=== PATIENT | female | born 1990 | race Caucasian/White ===

== ENCOUNTER 2016-06-26 19:11 | Observation (INO) | payer OTHER ==
[~2016-06-26] VITALS: Ht 175.3 cm; Wt 162.2 kg
[~2016-06-26 19:11] MED LIST: ANUS2.5C2 PR; COLA100C PO; MOM30SS PO; MOTR200T44 PO; TYLE167L PO
[2016-06-26] MEDS ORDERED: ONDANSETRON 4MG/2ML VIAL (J2405) As Ordered ONE (21:44)
[2016-06-26] MEDS ORDERED: KETOROLAC 30 MG/ML VIAL (J1885) As Ordered ONE (21:45)
[2016-06-26 22:22] LABS: BASO % 0.3 % (0.0-1.0); EOS # 0.2 K/mm3 (0.0-0.50); EOS % 1.4 % (0.0-3.0); LARGE UNSTAINED CELL # 0.2 K/mm3 (0.0-0.4); LARGE UNSTAINED CELL % 1.4 % (0.0-4.0); LYMPH # 1.5 K/mm3 (1.5-6.5); LYMPH % 12.9 % (24.0-44.0); MEAN CORPUSCULAR HEMOGLOBIN 28.8 pg (27.0-33.0); MEAN CORPUSCULAR HGB CONC 32.6 g/dl (32.0-36.5); MEAN CORPUSCULAR VOLUME 88.3 fl (80.0-96.0); MONO # 0.6 K/mm3 (0.0-0.8); MONO % 5.2 % (0.0-5.0); NEUTROPHILS # 9.1 K/mm3 (1.8-7.7); NEUTROPHILS % 78.8 % (36.0-66.0); PLATELET COUNT, AUTOMATED 277 k/mm3 (150-450); RED CELL DISTRIBUTION WIDTH 12.6 % (11.5-14.5); WHITE BLOOD COUNT 11.6 K/mm3 (4.0-10.0)
[2016-06-26 22:40] LABS: ALBUMIN 3.4 GM/DL (3.2-5.2); ALBUMIN/GLOBULIN RATIO 0.85 (1.00-1.93); ALKALINE PHOSPHATASE 96 U/L (45-117); ALT/SGPT 20 U/L (12-78); AMYLASE 25 U/L (25-115); ANION GAP 9 MEQ/L (8-16); AST/SGOT 11 U/L (15-37); BILIRUBIN,DIRECT 0.2 MG/DL (0.0-0.2); BILIRUBIN,TOTAL 0.8 MG/DL (0.2-1.0); BLOOD UREA NITROGEN 10 MG/DL (7-18); CALCIUM LEVEL 8.6 MG/DL (8.5-10.1); CARBON DIOXIDE LEVEL 27 MEQ/L (21-32); CHLORIDE LEVEL 104 MEQ/L (98-107); CREATININE FOR GFR 0.65 MG/DL (0.55-1.02); GLOMERULAR FILTRATION RATE > 60.0 (>60); GLUCOSE, FASTING 80 MG/DL (70-105); POTASSIUM SERUM 4.4 MEQ/L (3.5-5.1); SODIUM LEVEL 140 MEQ/L (136-145); TOTAL PROTEIN 7.4 GM/DL (6.4-8.2)
--- NOTE | 2016-06-26 22:40 | REPUSA ---
CLINICAL HISTORY: Renal colic. TECHNIQUE: Multiple axial, sagittal and coronal CT images were obtained through the abdomen and pelvi s without administration of oral or IV contrast material. COMMENTS: The liver is of uniform attenuation without mass or defect. There is no intra or extrahepatic biliary ductal dilatation. The spleen is enlarged, 16 CM. Gallbladder is packed with calcified stones. The pancreas is of normal contour and attenuation characteristics. There is no evidence of adrenal mass. The kidneys are normal in size, shape and configuration. No renal or ureteral calculi are identified. There is no hydroureter or hydronephrosis. There is no evidence for appendicitis. There is no bowel wall thickening. No evidence for small or la rge bowel obstruction. There is no evidence of abdominal ascites or lymphadenopathy. There is no evidence of intrinsic or extrinsic bladder mass. There is no pelvic ascites or lymphadeno angle. 4 x 6 cm right ovarian cyst is seen. Uterus and left ovary are unremarkable. Images of the lung bases show no evidence of pleural or parenchymal mass. There are no pleural effusi ons. The bony structures are free of lytic or blastic lesions. IMPRESSION: Gallbladder is packed with calcified stones. Splenomegaly. No renal or ureteral calculi are identified. 4 x 6 cm right ovarian cyst. Consider correlation with pelvic ultrasound. Thank you for your kind referral of this patient.
--- NOTE | 2016-06-26 23:00 | REPUSA ---
HISTORY: Biliary colic TECHNIQUE: Right upper quadrant ultrasound. COMPARISON: Same-day CT abdomen. ULTRASOUND RUQ: Liver: No intrahepatic ductal dilation. Diffusely increased hepatic echotexture consistent with fatty infiltration. Gallbladder: Filled with stones, with mild wall thickening at 3 mm, and positive sonographic Marcos's sign. Common bile duct: Nondistended at 4.8 mm. Pancreas: Poorly visualized due to overlying bowel gas. No pancreatic duct dilation. Right kidney: 11.1 x 6.3 x 5.1 cm. No stones or hydronephrosis. Peritoneum: No free fluid. IMPRESSION: Cholelithiasis. Positive sonographic Marcos's sign can be seen in acute cholecystitis. Correlate clin ically.
[2016-06-26] MEDS ORDERED: MORPHINE 4 MG/ML 1ML SYRINGE As Ordered ONE (23:07)
--- NOTE | 2016-06-26 23:10 | REPUSA ---
CLINICAL HISTORY: Adnexa pain TECHNIQUE: Ultrasound of the pelvis was performed. Transabdominal and endovaginal exams were performe d. COMPARISON: Same-day pelvic ultrasound. ULTRASOUND PELVIS : Uterus: 9.3 x 5.0 x 6.0 cm. Normal without masses. Endometrial stripe: 16 mm thickness. Right ovary: 6.5 x 5.0 x 6.1 cm. There is a simple cyst measuring 6.3 cm. Normal vascular flow. Left ovary: 4.1 x 2.9 x 3.0 cm. No masses. Normal vascular flow. Pelvic fluid: Physiologic. IMPRESSION: Large 6.3 cm right ovarian cyst. Normal ovarian vascular flow bilaterally.
[2016-06-26] MEDS ORDERED: cefTRIAXone SOD 1 GM VIAL (J0696) As Ordered ONE (23:16)
[2016-06-26] MEDS ORDERED: NEXP68IM SC (23:17)
[2016-06-26] MEDS ORDERED: TYLE325T5 PO (23:17)
[2016-06-27] VITALS (9 sets, daily range): BP systolic 115–139; BP diastolic 57–85
[2016-06-27] MEDS: LR 1,000 ML IV SCH ×3 (03:00→19:00)
--- NOTE | 2016-06-27 03:21 | EDDOCDS ---
Nurse's Notes [facility] Name: Mahsa Frankel Age: 26 yrs Sex: Female : 1990 Arrival Date: 06/26/2016 Time: 19:11 Bed I6 Private MD: NO PRIMARY PHYSICIAN, . Diagnosis: Acute cholecystitis;Urinary tract infection, site not specified;Other ovarian cysts-Right;Splenomegaly, not elsewhere classified;Fatty (change of) liver, not elsewhere classified Presentation: 06/26 19:18 Presenting complaint: Patient states: "my period has been abdnormal, and I get a lot of ead back pain." Reports onset of cycle on 06/20. "I feel like I've got a bag of rocks in my stomach.". Acute neurological deficits are not present. Mechanism of Injury: No Mechanism of Injury. Adult Sepsis Screening: The patient does not have new or worsening altered mentation. Patient's respiratory rate is less than 22. Systolic blood pressure is greater than 100. Patient has a qSOFA score of 0- Negative Sepsis Screen. Suicide/Homicide risk assessment- the patient denies having any suicidal and/or homicidal ideations and does not present with any other emotional, behavioral or mental health complaints. Status: Patient is not a corporate services manager or dependent. Transition of care: patient was not received from another setting of care. 19:18 Acuity: CATHIE Level 3 ead 19:18 Method Of Arrival: Walkin/Carried/Asstd ead Triage Assessment: 19:20 General: Appears in no apparent distress, uncomfortable, Behavior is appropriate for ead age, cooperative. Pain: Location: back and abdomen. HIV screening NA for this visit Offered previously. Neurological: Level of Consciousness is awake, alert, Oriented to person, place, time. Respiratory: Airway is patent Respiratory effort is even, unlabored. GI: Reports lower abdominal pain. : Denies vaginal bleeding. Derm: Skin is pink, warm & dry. Derm: Reports rash to left groin. Musculoskeletal: Reports pain in low back area and left low back. 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 nexaplon - PMHx: none; - PSHx: D & C; ORIF Right Ankle; - Social history: Smoking status: Patient uses tobacco products, current every day smoker. No barriers to communication noted, The patient speaks fluent Venezuelan, Speaks appropriately for age. - Family history: Not pertinent. - : The pt / caregiver states he / she is not on anticoagulants. Home medication list is obtained from the patient. - Exposure Risk Screening:: None identified. Screenin:51 Screening information is obtained from the patient. Fall risk: No risks identified. kas2 Assistance ADL's: requires no assistance with activities of daily living. Abuse/DV Screen: The patient / caregiver reports he/she is: not in a situation that causes fear, pain or injury. Nutritional screening: No deficits noted. Advance Directives: Currently, there is no health care proxy. There is no active DNR order. There is no living will. There is no Power of News Video Editor. home support is adequate. Assessment: 21:49 General: Appears in no apparent distress, uncomfortable, well nourished, well groomed, kas2 Behavior is appropriate for age, cooperative. Pain: Location: left low back and low back area and abdomen and back Pain currently is 8 out of 10 on a pain scale. Neurological: Level of Consciousness is awake, alert, Oriented to person, place, time. Cardiovascular: Capillary refill < 3 seconds Rhythm is regular. Respiratory: Airway is patent Respiratory effort is even, unlabored, Respiratory pattern is regular, symmetrical, Breath sounds are clear bilaterally. :. Derm: Skin is intact, is healthy with good turgor, Skin is dry, Skin is pink, warm & dry. normal, Skin temperature is warm. 22:15 General: Patient gone to US via wheelchair.. kas2 22:40 General: Patient back from US via wheelchair with tech. Resettled in bed. Patient kas2 states pain is much better in abdomen 2/10. No apparent distress. Will continue to monitor.. 06/27 00:17 General: Appears in no apparent distress, Behavior is appropriate for age, cooperative, ka4 pleasant. Respiratory: Airway is patent Respiratory effort is even, unlabored, Respiratory pattern is regular, symmetrical. Derm: Skin is intact, is healthy with good turgor, Skin is pink, warm & dry. 00:35 General: Patient sleeping at this time. No apparent distress noted. Appears kas2 comfortable. Call alexander within reach. Will continue to monitor.. 01:24 General: Appears in no apparent distress, comfortable, well nourished, well groomed, kas2 Behavior is appropriate for age, cooperative, pleasant. Pain: Denies pain. Neurological: Level of Consciousness is awake, alert, Oriented to person, place, time. Cardiovascular: Capillary refill < 3 seconds Heart tones present Rhythm is regular. Respiratory: Airway is patent Respiratory effort is even, unlabored, Respiratory pattern is regular, symmetrical, Breath sounds are clear bilaterally. GI: Abdomen is obese, Bowel sounds present X 4 quads. Abd is soft X 4 quads Abd is tender to palpation X 4 quads. : No deficits noted. Derm: Skin is intact, is healthy with good turgor, Skin is dry, Skin is pink, warm & dry. normal, Skin temperature is warm. 02:15 General: Patient sleeping at this time. Denies pain or discomfort at this time. No kas2 apparent distress. Call alexander within reach. Will continue to monitor.. Vital Signs: 06/26 19:13 BP 108 / 79; Pulse 110; Resp 16; Temp 97.7; Pulse Ox 100% ; Weight 164.65 kg; Height 5 cmb ft. 9 in. (175.26 cm); Pain 9/10; 22:40 BP 110 / 72; Pulse 92; Resp 18; Temp 97.0; Pulse Ox 99% ; Pain 5/10; kas2 06/27 00:30 BP 122 / 74; Pulse 89; Resp 18; Temp 98.2(O); Pulse Ox 99% ; Pain 2/10; kas2 00:51 BP 124 / 65; Pulse 90; Resp 18; Temp 98.3; Pulse Ox 99% ; Pain 1/10; kas2 02:40 BP 118 / 70; Pulse 85; Resp 18; Temp 98.0(O); Pulse Ox 99% on R/A; Pain 0/10; kas2 06/26 19:13 Body Mass Index 53.61 (164.65 kg, 175.26 cm) cmb Vitals: 06/26 19:13 Log In Time: June 26, 2016 at 19:11. cmb ED Course: 19:13 Patient visited by Radha Latham. cmb 19:13 NO PRIMARY PHYSICIAN, . is Private Physician. cmb 19:13 Patient moved to Waiting cmb 19:15 Patient moved to Pre RCE cmb 19:20 Triage Initiated ead 20:12 Patient moved to Triage 1 cln 20:57 Carlyn Conner PA-C is PHCP. ef1 20:57 Jose Hodges DO is Attending Physician. ef1 20:57 Patient visited by Carlyn Conner PA-C. ef1 21:13 Patient moved to I6 / jmb 21:18 Urinalysis Sent. ead 21:18 Urine Culture Sent. ead 21:21 Patient visited by Prabha Thorpe RN. ead 21:34 Patient moved to Ultrasound br3 21:41 [facility] Payment Agreement was scanned into [employer] and attached to record. jpb 21:49 Patient moved to I6 / br3 21:51 Patient visited by Tati King RN. kas2 21:51 Inserted saline lock: 22 gauge in right hand The patient tolerated the procedure well. kas2 No procedures done that require assistance. 22:37 Patient visited by Tati King RN. kas2 22:46 Patient visited by Tati King RN. kas2 23:01 Patient visited by Tati King RN. kas2 23:12 Jonathan Canela DO is Hospitalizing Provider. ef1 23:20 Admission Orders was scanned into [employer] and attached to record. sew 23:32 CT ABD & PELVIS: No Contrast Returned. EDMS 23:32 Gallbladder US Returned. EDMS 23:32 -US Pelvic Non-Ob Complete Returned. EDMS 06/27 00:17 Patient visited by Mireille Deal LPN. ka4 00:37 Patient visited by Tati King RN. kas2 01:25 Patient visited by Tati King RN. kas2 02:15 Patient visited by Tati King RN. kas2 02:52 Patient visited by Tati King RN. kas2 02:52 The patient / caregiver is instructed regarding the plan of care and ED course. kas2 03:09 Patient visited by Tati King RN. kas2 Administered Medications: 06/26 21:49 Drug: NS 0.9% 1000 ml [sodium chloride 0.9 % intravenous solution] Route: IV; Rate: kas2 bolus; Site: right hand; 06/27 02:13 Follow up: IV Status: Completed infusion; IV Intake: 1000ml kas2 06/26 21:49 Drug: Ondansetron 4 mg [ondansetron HCl 2 mg/mL intravenous solution (2 mL)] Route: kas2 IVP; Site: right hand; 21:49 Drug: ketorolac 30 mg [ketorolac 30 mg/mL (1 mL) injection solution (1 mL)] Route: IVP; kas2 Site: right hand; 23:12 Drug: morphine 4 mg [morphine 4 mg/mL intravenous cartridge (1 mL)] Route: IVP; Site: [facility] right hand; 06/27 00:51 Follow up: BP 124 / 65; Pulse 90 bpm; Resp 18 bpm; Temp 98.3; Pulse Ox 99% ; Pain 07/02 kas2 Adult; Response: No Adverse Reaction; Pain is decreased 06/26 23:26 Drug: cefTRIAXone 1 grams [ceftriaxone 1 gram solution for injection] Route: IVPB; kas2 Infused Over: 30 mins; Site: right hand; Point of Care Testing: Urine : 21:23 hCG Reading: Negative; Control Reading: Positive; ead Ranges: Intake: 06/27 02:13 IV: 1000.00ml; Total: 1000.00ml. [facility] Order Results: Lab Order: Amylase; SPEC'M 06/26/16 22:02 Test: AMYLASE; Value: 25; Range: 25-115; Units: U/L; Status: F Lab Order: Basic Metabolic Profile; SPEC'M 06/26/16 22:02 Test: GLUCOSE, FASTING; Value: 80; Range: 70-105; Units: MG/DL; Status: F Test: BLOOD UREA NITROGEN; Value: 10; Range: 7-18; Units: MG/DL; Status: F Test: CREATININE FOR GFR; Value: 0.65; Range: 0.55-1.02; Units: MG/DL; Status: F Test: GLOMERULAR FILTRATION RATE; Value: > 60.0; Range: >60; Status: F Test: SODIUM LEVEL; Value: 140; Range: 136-145; Units: MEQ/L; Status: F Test: POTASSIUM SERUM; Value: 4.4; Range: 3.5-5.1; Units: MEQ/L; Status: F Test: CHLORIDE LEVEL; Value: 104; Range: 98-107; Units: MEQ/L; Status: F Test: CARBON DIOXIDE LEVEL; Value: 27; Range: 21-32; Units: MEQ/L; Status: F Test: ANION GAP; Value: 9; Range: 8-16; Units: MEQ/L; Status: F Test: CALCIUM LEVEL; Value: 8.6; Range: 8.5-10.1; Units: MG/DL; Status: F Test Note: ; Units are mL/min/1.73 m2 Chronic Kidney Disease Staging per NKF: Stage I & II GFR >=60 Normal to Mildly Decreased Stage III GFR 30-59 Moderately Decreased Stage IV GFR 15-29 Severely Decreased Stage V GFR <15 Very Little GFR Left ESRD GFR <15 on BROILER CHEF OR COOK Lab Order: CBC with Diff; SPEC'M 06/26/16 22:02 Test: WHITE BLOOD COUNT; Value: 11.6; Range: 4.0-10.0; Abnormal: Above high normal; Units: K/mm3; Status: F Test: RED BLOOD COUNT; Value: 4.46; Range: 4.00-5.40; Units: M/mm3; Status: F Test: HEMOGLOBIN; Value: 12.9; Range: 12.0-16.0; Units: g/dl; Status: F Test: HEMATOCRIT; Value: 39.4; Range: 36.0-47.0; Units: %; Status: F Test: MEAN CORPUSCULAR VOLUME; Value: 88.3; Range: 80.0-96.0; Units: fl; Status: F Test: MEAN CORPUSCULAR HEMOGLOBIN; Value: 28.8; Range: 27.0-33.0; Units: pg; Status: F Test: MEAN CORPUSCULAR HGB CONC; Value: 32.6; Range: 32.0-36.5; Units: g/dl; Status: F Test: RED CELL DISTRIBUTION WIDTH; Value: 12.6; Range: 11.5-14.5; Units: %; Status: F Test: PLATELET COUNT, AUTOMATED; Value: 277; Range: 150-450; Units: k/mm3; Status: F Test: NEUTROPHILS %; Value: 78.8; Range: 36.0-66.0; Abnormal: Above high normal; Units: %; Status: F Test: LYMPH %; Value: 12.9; Range: 24.0-44.0; Abnormal: Below low normal; Units: %; Status: F Test: MONO %; Value: 5.2; Range: 0.0-5.0; Abnormal: Above high normal; Units: %; Status: F Test: EOS %; Value: 1.4; Range: 0.0-3.0; Units: %; Status: F Test: BASO %; Value: 0.3; Range: 0.0-1.0; Units: %; Status: F Test: LARGE UNSTAINED CELL %; Value: 1.4; Range: 0.0-4.0; Units: %; Status: F Test: NEUTROPHILS #; Value: 9.1; Range: 1.8-7.7; Abnormal: Above high normal; Units: K/mm3; Status: F Test: LYMPH #; Value: 1.5; Range: 1.5-6.5; Units: K/mm3; Status: F Test: MONO #; Value: 0.6; Range: 0.0-0.8; Units: K/mm3; Status: F Test: EOS #; Value: 0.2; Range: 0.0-0.50; Units: K/mm3; Status: F Test: BASO #; Value: 0.0; Range: 0.0-0.2; Units: K/mm3; Status: F Test: LARGE UNSTAINED CELL #; Value: 0.2; Range: 0.0-0.4; Units: K/mm3; Status: F Lab Order: Lipase; [facility] 06/26/16 22:02 Test: LIPASE; Value: 107; Range: 73-393; Units: U/L; Status: F Lab Order: Liver Profile; [facility] 06/26/16 22:02 Test: AST/SGOT; Value: 11; Range: 15-37; Abnormal: Below low normal; Units: U/L; Status: F Test: ALT/SGPT; Value: 20; Range: 12-78; Units: U/L; Status: F Test: ALKALINE PHOSPHATASE; Value: 96; Range: 45-117; Units: U/L; Status: F Test: BILIRUBIN,TOTAL; Value: 0.8; Range: 0.2-1.0; Units: MG/DL; Status: F Test: BILIRUBIN,DIRECT; Value: 0.2; Range: 0.0-0.2; Units: MG/DL; Status: F Test: TOTAL PROTEIN; Value: 7.4; Range: 6.4-8.2; Units: GM/DL; Status: F Test: ALBUMIN; Value: 3.4; Range: 3.2-5.2; Units: GM/DL; Status: F Test: ALBUMIN/GLOBULIN RATIO; Value: 0.85; Range: 1.00-1.93; Abnormal: Below low normal; Status: F Lab Order: Urinalysis; SPEC'M 06/26/16 21:17 Test: APPEARANCE, URINE; Value: CLOUDY; Range: CLEAR; Abnormal: Above high normal; Status: F Test: COLOR, URINE; Value: YELLOW; Range: YELLOW; Status: F Test: PH,URINE; Value: 5.0; Range: 5.0-9.0; Units: UNITS; Status: F Test: SPECIFIC GRAVITY URINE AUTO; Value: 1.013; Range: 1.002-1.035; Status: F Test: PROTEIN, URINE AUTO; Value: 2+; Range: NEGATIVE; Abnormal: Above high normal; Units: mg/dL; Status: F Test: GLUCOSE, URINE (UA) AUTO; Value: NEGATIVE; Range: NEGATIVE; Units: mg/dL; Status: F Test: KETONE, URINE AUTO; Value: NEGATIVE; Range: NEGATIVE; Units: mg/dL; Status: F Test: UROBILINOGEN, URINE AUTO; Value: 0.2; Range: 0.0-2.0; Units: mg/dL; Status: F Test: BILIRUBIN, URINE AUTO; Value: NEGATIVE; Range: NEGATIVE; Status: F Test: NITRITE, URINE AUTO; Value: POSITIVE; Range: NEGATIVE; Status: F Test: LEUKOCYTE ESTERASE, URINE AUTO; Value: 3+; Range: NEGATIVE; Abnormal: Above high normal; Status: F Test: BLOOD, URINE BLOOD; Value: 2+; Range: NEGATIVE; Abnormal: Above high normal; Status: F Test: WBC, URINE AUTO; Value: TNTC; Range: 0-3; Abnormal: Above high normal; Units: /HPF; Status: F Test: RBC, URINE AUTO; Value: 29; Range: 0-3; Abnormal: Above high normal; Units: /HPF; Status: F Test: BACTERIA, URINE AUTO; Value: 2+; Range: NEGATIVE; Abnormal: Above high normal; Status: F Test: SQUAMOUS EPITHELIAL CELL UR AU; Value: 1; Range: 0-6; Units: /HPF; Status: F Test: MUCUS, URINE; Value: SMALL; Range: NEGATIVE; Status: F Test: HYALINE CAST, URINE AUTO; Value: 0; Range: 0-1; Units: /LPF; Status: F Radiology Order: CT ABD & PELVIS: No Contrast Test: CT ABD & PELVIS: No Contrast REASON FOR EXAMINATION: Renal colic; ; CLINICAL HISTORY: Renal colic.; TECHNIQUE: Multiple axial, sagittal and coronal CT images were obtained through the abdomen and pelvi; s without administration of oral or IV contrast material.; COMMENTS:; The liver is of uniform attenuation without mass or defect. There is no intra or extrahepatic biliary; ductal dilatation. The spleen is enlarged, 16 CM. Gallbladder is packed with calcified stones. The; pancreas is of normal contour and attenuation characteristics. There is no evidence of adrenal mass.; The kidneys are normal in size, shape and configuration. No renal or ureteral calculi are identified.; There is no hydroureter or hydronephrosis.; There is no evidence for appendicitis. There is no bowel wall thickening. No evidence for small or la; rge bowel obstruction. There is no evidence of abdominal ascites or lymphadenopathy.; There is no evidence of intrinsic or extrinsic bladder mass. There is no pelvic ascites or lymphadeno; angle.; 4 x 6 cm right ovarian cyst is seen. Uterus and left ovary are unremarkable.; Images of the lung bases show no evidence of pleural or parenchymal mass. There are no pleural effusi; ons.; The bony structures are free of lytic or blastic lesions.; IMPRESSION:; Gallbladder is packed with calcified stones.; Splenomegaly.; No renal or ureteral calculi are identified.; 4 x 6 cm right ovarian cyst. Consider correlation with pelvic ultrasound.; Thank you for your kind referral of this patient.; ; Radiology Order: Gallbladder US Test: Gallbladder US REASON FOR EXAMINATION: Biliary Colic; ; HISTORY: Biliary colic; TECHNIQUE: Right upper quadrant ultrasound.; ; COMPARISON: Same-day CT abdomen.; ; ULTRASOUND RUQ:; Liver: No intrahepatic ductal dilation. Diffusely increased hepatic echotexture consistent with fatty; infiltration.; Gallbladder: Filled with stones, with mild wall thickening at 3 mm, and positive sonographic Marcos's; sign.; Common bile duct: Nondistended at 4.8 mm.; Pancreas: Poorly visualized due to overlying bowel gas. No pancreatic duct dilation.; Right kidney: 11.1 x 6.3 x 5.1 cm. No stones or hydronephrosis.; Peritoneum: No free fluid.; IMPRESSION:; Cholelithiasis. Positive sonographic Marcos's sign can be seen in acute cholecystitis. Correlate clin; ically.; ; Radiology Order: -US Pelvic Non-Ob Complete Test: -US Pelvic Non-Ob Complete REASON FOR EXAMINATION: Adnexal Pain r/o Torsion; ; CLINICAL HISTORY: Adnexa pain; TECHNIQUE: Ultrasound of the pelvis was performed. Transabdominal and endovaginal exams were performe; d.; COMPARISON: Same-day pelvic ultrasound.; ULTRASOUND PELVIS :; ; Uterus: 9.3 x 5.0 x 6.0 cm. Normal without masses.; ; Endometrial stripe: 16 mm thickness.; ; Right ovary: 6.5 x 5.0 x 6.1 cm. There is a simple cyst measuring 6.3 cm. Normal vascular flow.; ; Left ovary: 4.1 x 2.9 x 3.0 cm. No masses. Normal vascular flow.; ; Pelvic fluid: Physiologic.; ; IMPRESSION: Large 6.3 cm right ovarian cyst. Normal ovarian vascular flow bilaterally.; ; Outcome: 06/26 23:13 Decision to Hospitalize by Provider. ef1 06/27 02:51 Discharge Assessment: patient administered narcotics - yes. Patient was admitted to the [address] or transferred to another facility. The following High Risk Discharge criteria are identified: None. Admitted to Med/Surg accompanied by tech, via stretcher, with chart. Condition: good Condition: stable Condition: improved. Ultrasound Study completed. Property :Personal belongings accompany Pt. 03:21 Patient left the ED. sls1 Signatures: Dispatcher [employer] EDMS Carlyn Conner PA-C PAAlexC ef1 Maia Monique br3 Kat Fermin, RN RN sls1 Nitin Hansen Chelsea cmb Wallace, Sarah sew Becker, JoshuaRN RN Prabha Holguin,RN RN luciano Deal,Mireille,AUTOMATIC SPINNING LATHE SETTER AUTOMATIC SPINNING LATHE SETTER ka4 Tati King,RN RN kas2 Memo, Whitney, HEAD PORTER HEAD PORTER cln MTDD
--- NOTE | 2016-06-27 03:21 | EDDOCDS ---
Physician Documentation [facility] Name: Mahsa Frankel Age: 26 yrs Sex: Female : 1990 Arrival Date: 06/26/2016 Time: 19:11 Bed I6 / 28 Private MD: NO PRIMARY PHYSICIAN, . Disposition: 06/26/16 23:13 Hospitalization ordered by Jonathan Canela for Inpatient Admission. Preliminary diagnosis are Acute cholecystitis, Urinary tract infection, site not specified, Other ovarian cysts - Right, Splenomegaly, not elsewhere classified, Fatty (change of) liver, not elsewhere classified. - Bed requested for 4 [place]. - Status is Inpatient Admission. sls1 - Condition is Stable. - Problem is new. - Symptoms have improved. Historical: - Allergies: hydrocodone (Anaphylaxis); - Home Meds: 1. nexaplon - PMHx: none; - PSHx: D & C; ORIF Right Ankle; - Social history: Smoking status: Patient uses tobacco products, current every day smoker. No barriers to communication noted, The patient speaks fluent Mexican, Speaks appropriately for age. - Family history: Not pertinent. - : The pt / caregiver states he / she is not on anticoagulants. Home medication list is obtained from the patient. - Exposure Risk Screening:: None identified. 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 9 in. (175.26 cm); Pain 9/10; 22:40 BP 110 / 72; Pulse 92; Resp 18; Temp 97.0; Pulse Ox 99% ; Pain 5/10; kas2 06/27 00:30 BP 122 / 74; Pulse 89; Resp 18; Temp 98.2(O); Pulse Ox 99% ; Pain 2/10; kas2 00:51 BP 124 / 65; Pulse 90; Resp 18; Temp 98.3; Pulse Ox 99% ; Pain 1/10; kas2 02:40 BP 118 / 70; Pulse 85; Resp 18; Temp 98.0(O); Pulse Ox 99% on R/A; Pain 0/10; kas2 06/26 19:13 Body Mass Index 53.61 (164.65 kg, 175.26 cm) cmb MDM: 06/26 21:06 Financial registration complete. jpb 21:12 NS 0.9% 1000 ml IV at bolus once ordered. ef1 21:12 Ondansetron 4 mg IVP once ordered. ef1 21:12 ketorolac 30 mg IVP once ordered. ef1 21:12 IV Saline Lock ordered. ef1 21:12 Undress patient appropriately for examination ordered. ef1 21:12 UCG by Nursing ordered. ef1 21:13 Amylase Ordered. EDMS 21:13 Basic Metabolic Profile Ordered. EDMS 21:13 CBC with Diff Ordered. EDMS 21:13 Lipase Ordered. EDMS 21:13 Liver Profile Ordered. EDMS 21:13 Urinalysis Ordered. EDMS 21:13 Urine Culture Ordered. EDMS 21:13 CT ABD & PELVIS: No Contrast Ordered. EDMS 21:13 NOTHING BY MOUTH+DIET ordered. EDMS 21:14 Gallbladder US Ordered. EDMS 21:24 -US Pelvic Non-Ob Complete Ordered. EDMS 21:24 DUPLEX SCAN LIMITED (DOPPLER)+US Ordered. EDMS 21:33 Transvaginal NON- US Ordered. EDMS 21:41 [facility] Payment Agreement was scanned into [employer] and attached to record. jpb 22:50 CBC with Diff Reviewed. ef1 22:50 Liver Profile Reviewed. ef1 22:50 Urinalysis Reviewed. ef1 22:50 Amylase Reviewed. ef1 22:50 Basic Metabolic Profile Reviewed. ef1 22:50 Lipase Reviewed. ef1 23:05 morphine 4 mg IVP once ordered. ef1 23:07 BED REQUEST+ADM ordered. EDMS 23:13 cefTRIAXone 1 grams IVPB once over 30 mins; dilute in 50mL of NS or D5W ordered. ef1 23:20 Admission Orders was scanned into [employer] and attached to record. sew 06/27 02:58 Admission / Observation Status ordered. EDMS Point of Care Testing: Urine : 06/26 21:23 hCG Reading: Negative; Control Reading: Positive; ead Ranges: Administered Medications: 21:49 Drug: NS 0.9% 1000 ml [sodium chloride 0.9 % intravenous solution] Route: IV; Rate: kas2 bolus; Site: right hand; 06/27 02:13 Follow up: IV Status: Completed infusion; IV Intake: 1000ml kas2 06/26 21:49 Drug: Ondansetron 4 mg [ondansetron HCl 2 mg/mL intravenous solution (2 mL)] Route: kas2 IVP; Site: right hand; 21:49 Drug: ketorolac 30 mg [ketorolac 30 mg/mL (1 mL) injection solution (1 mL)] Route: IVP; [facility] Site: right hand; 23:12 Drug: morphine 4 mg [morphine 4 mg/mL intravenous cartridge (1 mL)] Route: IVP; Site: kas2 right hand; 06/27 00:51 Follow up: BP 124 / 65; Pulse 90 bpm; Resp 18 bpm; Temp 98.3; Pulse Ox 99% ; Pain 07/02 kas2 Adult; Response: No Adverse Reaction; Pain is decreased 06/26 23:26 Drug: cefTRIAXone 1 grams [ceftriaxone 1 gram solution for injection] Route: IVPB; kas2 Infused Over: 30 mins; Site: right hand; Signatures: Dispatcher [employer] EDSindi Iglesias RN RN Carlyn Rome, PA-C PA-C ef1 Kat Fermin, RN RN sls1 Nitin Hansen Sarah sew Dunaway, Emily, RN RN ead Smith, Kim, RN RN kas2 The chart was reviewed and I authenticate all verbal orders and agree with the evaluation and treatment provided.Attachments: 21:41 [facility] Payment Agreement jp 23:20 Admission Orders sew MTDD
[2016-06-27] MEDS: KETOROLAC 30 MG/ML VIAL (J1885) IV PRN ×2 (04:29→10:58)
[2016-06-27] MEDS ORDERED: ACETAMINOPHEN TAB 650MG DOSE (2X325MG) PO PRN (10:30)
[2016-06-27] MEDS ORDERED: ONDANSETRON 4MG/2ML VIAL (J2405) IV PRN ×2 (10:30→18:30)
[2016-06-27] MEDS ORDERED: MORPHINE 2 MG/ML 1ML SYRINGE IV PRN (10:30)
[2016-06-27] MEDS: PANTOPRAZOLE 40MG INJ (PROTONIX) (C9113) IV SCH (10:55)
[2016-06-27] MEDS: metroNIDAZOLE 500 MG in APPROPRIATE DILUENT 1 EA IV SCH ×3 (10:56→22:47)
[2016-06-27] MEDS: SENOKOT S TAB PO SCH ×2 (10:56→21:28)
--- NOTE | 2016-06-27 11:30 | HPE ---
DATE OF ADMISSION: 06/26/2016 CHIEF COMPLAINT: Right upper quadrant pain. HISTORY OF PRESENT ILLNESS: The patient is a 26-year-old female. She has had a history of right upper quadrant abdominal pain that has been getting progressively worse for the past week. She was hoping it would go away on its own, however, it has not so she came into emergency room last evening because she could not stand the pain anymore. In the ER her vitals were stable. Her white count was slightly elevated at 11.6. She had an ultrasound of the gallbladder which showed stones positive Marcos sign and gallbladder wall thickening at 3 mm. She also had signs of a urinary tract infection (UTI) on her lab work. She is currently being treated for UTI and I was asked to evaluate for this acute cholecystitis. She has persistent right upper quadrant pain radiating around her right side. It gets progressively worse with eating. She has had lots of nausea no vomiting. No change in bladder habits and not denies any pain or frequency with urination. PAST MEDICAL HISTORY: Obesity. PAST SURGICAL HISTORY: Dilation and curettage. Open reduction internal fixation (ORIF) right ankle. SOCIAL HISTORY: She is a daily smoker. Denies any drug or alcohol abuse. FAMILY HISTORY: Noncontributory. ALLERGIES: HYDROCODONE. HOME MEDICATIONS: Nexplanon. REVIEW OF SYSTEMS: Pertinent positives and negatives stated in the History of present illness (HPI). PHYSICAL EXAMINATION: GENERAL: Alert and oriented times three, no acute stress VITAL SIGNS: Stable, afebrile. HEENT: Pupils equal round react to light accommodation. HEART: S1, S2 regular rate and rhythm. LUNGS: Resting bilaterally. ABDOMEN: Soft, tender to palpation right upper quadrant with localized guarding, no rebounding or rigidity. Bowel sounds positive. EXTREMITIES: No clubbing, cyanosis or edema. LABS: White count 11.6, hemoglobin 12.9, platelets 277, direct bilirubin 0.2, alk phosphatase 96, lipase 107. IMAGING: Gallbladder ultrasound shows wall thickening at 3 mm, positive sonographic Marcos's sign and multiple stones. ASSESSMENT/PLAN: The patient 26-year-old female with signs of acute cholecystitis with cholelithiasis. RECOMMENDATIONS: Proceed with laparoscopic, possible open cholecystectomy. Risks and benefits of procedure not limited but including bleeding, infection, hernia formation, damage surrounding structures, need further surgery were discussed in detail with the patient. Informed consent was obtained and procedure was planned for this afternoon.
[2016-06-27] MEDS: CIPROFLOXACIN 400 MG in APPROPRIATE DILUENT 1 EA IV SCH (12:18)
[2016-06-27] MEDS: HEPARIN SOD (PORCINE) 5000 UNITS/ML VIAL SC SCH ×2 (13:20→21:28)
[2016-06-27] MEDS ORDERED: BUPIVACAINE/EPIN 0.25% 30 ML VIAL As Ordered ONE (14:50)
[2016-06-27] MEDS ORDERED: MIDAZOLAM INJ 2 MG/2 ML VIAL (J2250) As Ordered ONE (16:20)
[2016-06-27] MEDS ORDERED: fentaNYL 250 MCG/5 ML INJECTION (J3010) As Ordered ONE (16:21)
[2016-06-27] MEDS ORDERED: ROCURONIUM BROMIDE 50 MG/5 ML VIAL As Ordered ONE ×3 (16:22→17:48)
[2016-06-27] MEDS ORDERED: LIDOCAINE 2% INJ 100 MG/5 ML SDV (FOR ANES.) As Ordered ONE (16:23)
[2016-06-27] MEDS ORDERED: PROPOFOL 200 MG/20 ML VIAL As Ordered ONE ×2 (16:24→17:54)
[2016-06-27] MEDS ORDERED: dexameTHASONE 4 MG/ML 1ML VIAL (J1100) As Ordered ONE (17:10)
[2016-06-27] MEDS ORDERED: KETOROLAC 60 MG/2 ML VIAL (J1885) As Ordered ONE (17:11)
[2016-06-27] MEDS ORDERED: ONDANSETRON 4MG/2ML VIAL (J2405) As Ordered ONE ×2 (17:11→18:12)
[2016-06-27] MEDS ORDERED: GLYCOPYRROLATE INJ 0.2 MG/ML 2 ML VIAL As Ordered ONE (17:23)
[2016-06-27] MEDS ORDERED: NEOSTIGMINE 1MG/ML 5 ML SYRINGE (J2710) As Ordered ONE (17:23)
[2016-06-27] MEDS ORDERED: metroNIDAZOLE/NACL 500MG(5MG/ML)100 ML BAG (S0030) As Ordered ONE (17:35)
[2016-06-27] MEDS ORDERED: BUPIVACAINE/EPIN 0.25% 30 ML VIAL XX ONE (17:37)
[2016-06-27] MEDS ORDERED: fentaNYL 100 MCG/2 ML INJECTION (J3010) As Ordered ONE (18:12)
[2016-06-27] MEDS: fentaNYL 100 MCG/2 ML INJECTION (J3010) IV PRN ×4 (18:15→18:30)
[2016-06-27] MEDS ORDERED: PERCOCET 5MG/325MG TAB PO PRN (18:30)
[2016-06-27] MEDS ORDERED: HYDROmorphone HCL 1 MG/ML SYRINGE (J1170) IV PRN (18:30)
[2016-06-27] MEDS ORDERED: LR 1,000 ML IV SCH (18:30)
[2016-06-27] MEDS ORDERED: HYDROmorphone HCL 1 MG/ML SYRINGE (J1170) As Ordered ONE (18:39)
[2016-06-27] MEDS: PERCOCET 5MG/325MG TAB PO PRN (22:47)
[2016-06-28 00:30] VITALS: BP 128/75
[2016-06-28] MEDS: CIPROFLOXACIN 400 MG in APPROPRIATE DILUENT 1 EA IV SCH (01:13)
[2016-06-28] MEDS: LR 1,000 ML IV SCH ×2 (02:43→11:00)
[2016-06-28] MEDS: HEPARIN SOD (PORCINE) 5000 UNITS/ML VIAL SC SCH (05:15)
[2016-06-28] MEDS: metroNIDAZOLE 500 MG in APPROPRIATE DILUENT 1 EA IV SCH ×2 (05:15→11:00)
[2016-06-28] MEDS: PERCOCET 5MG/325MG TAB PO PRN ×2 (05:26→10:08)
[2016-06-28 05:56] LABS: MEAN CORPUSCULAR VOLUME 87.8 fl (80.0-96.0); RED CELL DISTRIBUTION WIDTH 13.3 % (11.5-14.5); WHITE BLOOD COUNT 11.7 K/mm3 (4.0-10.0)
[2016-06-28 06:00] VITALS: BP 134/71
[2016-06-28 06:09] LABS: ANION GAP 8 MEQ/L (8-16); BLOOD UREA NITROGEN 11 MG/DL (7-18); CALCIUM LEVEL 8.9 MG/DL (8.5-10.1); CARBON DIOXIDE LEVEL 24 MEQ/L (21-32); CHLORIDE LEVEL 108 MEQ/L (98-107); CREATININE FOR GFR 0.65 MG/DL (0.55-1.02); GLOMERULAR FILTRATION RATE > 60.0 (>60); GLUCOSE, FASTING 120 MG/DL (70-105); MAGNESIUM LEVEL 2.4 MG/DL (1.8-2.4); POTASSIUM SERUM 4.4 MEQ/L (3.5-5.1); SODIUM LEVEL 140 MEQ/L (136-145)
[2016-06-28] MEDS ORDERED: PERCOCET PO (08:43)
[2016-06-28] MEDS ORDERED: SENN1TAB2 PO (08:43)
[2016-06-28] MEDS: SENOKOT S TAB PO SCH (10:08)
[2016-06-28] MEDS: PANTOPRAZOLE 40MG INJ (PROTONIX) (C9113) IV SCH (10:09)
--- NOTE | 2016-06-28 12:14 | RO ---
DATE OF PROCEDURE: 06/26/2016 PREPROCEDURE DIAGNOSIS: Acute cholecystitis. POSTPROCEDURE DIAGNOSIS: Acute cholecystitis. PROCEDURE: Laparoscopic cholecystectomy. SURGEON: Dr. 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 ESTIMATED BLOOD LOSS: 10. ANESTHESIA: General. COMPLICATIONS: None. INDICATIONS FOR PROCEDURE: The patient is a 26-year-old female who presents with signs and symptoms consistent with acute cholecystitis and cholelithiasis. Recommendation was to proceed laparoscopic, possible open cholecystectomy. Risks and benefits of the procedure, not limited to, but including bleeding, infection, hernia formation, damage surrounding structures, need for further surgery were discussed in detail with the patient. Informed consent was obtained and the procedure was planned. DESCRIPTION OF PROCEDURE: The patient brought back to operating room #1. After sufficient sedation, the abdomen was sterilely prepped and draped. Next, a time-out was done to confirm proper patient and proper procedure. Following that, a stab incision was made in the left lower quadrant. Veress needle was inserted and the abdomen was insufflated to 50 mmHg. Next, a 5 mm supraumbilical incision was made. A 5 mm Optiview port was used to gain access to the abdomen. Once the abdomen was entered, Veress needle site was examined. No signs of injury. Veress needle was then removed. 10 mm port was placed subxiphoid. Two 5 mm ports in the right upper quadrant. The fundus of the gallbladder was grasped and elevated towards the right shoulder. The cystic duct and cystic artery were then dissected free using combination of blunt and sharp dissection. Once they are both clearly identified, they were both doubly clipped and cut. The gallbladder was then removed from the gallbladder fossa using electrocautery. It was then taken out through the subxiphoid port using a 10 mm EndoCatch bag. The abdomen was then desufflated. Skin incisions were closed with #4-0 Vicryl subcuticular suture. The abdomen was cleaned and dried. Steri-Strips, 4x4 and tape were applied, thus ending the procedure.
--- NOTE | 2016-06-29 04:22 | EDDOCDS ---
Physician Documentation [facility] Name: Mahsa Frankel Age: 26 yrs Sex: Female : 1990 Arrival Date: 06/26/2016 Time: 19:11 Bed I6 / 28 Private MD: NO PRIMARY PHYSICIAN, . Disposition: 06/26/16 23:13 Hospitalization ordered by Jonathan Canela for Inpatient Admission. Preliminary diagnosis are Acute cholecystitis, Urinary tract infection, site not specified, Other ovarian cysts - Right, Splenomegaly, not elsewhere classified, Fatty (change of) liver, not elsewhere classified. - Bed requested for 4 [place]. - Status is Inpatient Admission. sls1 - Condition is Stable. - Problem is new. - Symptoms have improved. Historical: - Allergies: hydrocodone (Anaphylaxis); - Home Meds: 1. nexaplon - PMHx: none; - PSHx: D & C; ORIF Right Ankle; - Social history: Smoking status: Patient uses tobacco products, current every day smoker. No barriers to communication noted, The patient speaks fluent Danish, Speaks appropriately for age. - Family history: Not pertinent. - : The pt / caregiver states he / she is not on anticoagulants. Home medication list is obtained from the patient. - Exposure Risk Screening:: None identified. 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 9 in. (175.26 cm); Pain 9/10; 22:40 BP 110 / 72; Pulse 92; Resp 18; Temp 97.0; Pulse Ox 99% ; Pain 5/10; kas2 06/27 00:30 BP 122 / 74; Pulse 89; Resp 18; Temp 98.2(O); Pulse Ox 99% ; Pain 2/10; kas2 00:51 BP 124 / 65; Pulse 90; Resp 18; Temp 98.3; Pulse Ox 99% ; Pain 1/10; kas2 02:40 BP 118 / 70; Pulse 85; Resp 18; Temp 98.0(O); Pulse Ox 99% on R/A; Pain 0/10; kas2 06/26 19:13 Body Mass Index 53.61 (164.65 kg, 175.26 cm) cmb MDM: 06/26 21:06 Financial registration complete. jpb 21:12 NS 0.9% 1000 ml IV at bolus once ordered. ef1 21:12 Ondansetron 4 mg IVP once ordered. ef1 21:12 ketorolac 30 mg IVP once ordered. ef1 21:12 IV Saline Lock ordered. ef1 21:12 Undress patient appropriately for examination ordered. ef1 21:12 UCG by Nursing ordered. ef1 21:13 Amylase Ordered. EDMS 21:13 Basic Metabolic Profile Ordered. EDMS 21:13 CBC with Diff Ordered. EDMS 21:13 Lipase Ordered. EDMS 21:13 Liver Profile Ordered. EDMS 21:13 Urinalysis Ordered. EDMS 21:13 Urine Culture Ordered. EDMS 21:13 CT ABD & PELVIS: No Contrast Ordered. EDMS 21:13 NOTHING BY MOUTH+DIET ordered. EDMS 21:14 Gallbladder US Ordered. EDMS 21:24 -US Pelvic Non-Ob Complete Ordered. EDMS 21:24 DUPLEX SCAN LIMITED (DOPPLER)+US Ordered. EDMS 21:33 Transvaginal NON- US Ordered. EDMS 21:41 [facility] Payment Agreement was scanned into [employer] and attached to record. jpb 22:50 CBC with Diff Reviewed. ef1 22:50 Liver Profile Reviewed. ef1 22:50 Urinalysis Reviewed. ef1 22:50 Amylase Reviewed. ef1 22:50 Basic Metabolic Profile Reviewed. ef1 22:50 Lipase Reviewed. ef1 23:05 morphine 4 mg IVP once ordered. ef1 23:07 BED REQUEST+ADM ordered. EDMS 23:13 cefTRIAXone 1 grams IVPB once over 30 mins; dilute in 50mL of NS or D5W ordered. ef1 23:20 Admission Orders was scanned into [employer] and attached to record. [facility] 06/27 02:58 Admission / Observation Status ordered. EDMS 06/28 08:53 T-Sheet-- Draft Copy was scanned into [employer] and attached to record. gb Point of Care Testing: Urine : 06/26 21:23 hCG Reading: Negative; Control Reading: Positive; ead Ranges: Administered Medications: 21:49 Drug: NS 0.9% 1000 ml [sodium chloride 0.9 % intravenous solution] Route: IV; Rate: kas2 bolus; Site: right hand; 06/27 02:13 Follow up: IV Status: Completed infusion; IV Intake: 1000ml kas2 06/26 21:49 Drug: Ondansetron 4 mg [ondansetron HCl 2 mg/mL intravenous solution (2 mL)] Route: kas2 IVP; Site: right hand; 21:49 Drug: ketorolac 30 mg [ketorolac 30 mg/mL (1 mL) injection solution (1 mL)] Route: IVP; [facility] Site: right hand; 23:12 Drug: morphine 4 mg [morphine 4 mg/mL intravenous cartridge (1 mL)] Route: IVP; Site: [facility] right hand; 06/27 00:51 Follow up: BP 124 / 65; Pulse 90 bpm; Resp 18 bpm; Temp 98.3; Pulse Ox 99% ; Pain 07/02 kas2 Adult; Response: No Adverse Reaction; Pain is decreased 06/26 23:26 Drug: cefTRIAXone 1 grams [ceftriaxone 1 gram solution for injection] Route: IVPB; kas2 Infused Over: 30 mins; Site: right hand; Signatures: Dispatcher [employer] EDMS Sindi Lundberg RN RN Susanne Koehler, Reg Reg Carlyn Quan, PA-C PA-C Kat Mcnally, RN RN Nitin Becker Sarah sew Dunaway, EmilyRN Tati Oliver RN RN kas2 The chart was reviewed and I authenticate all verbal orders and agree with the evaluation and treatment provided.Attachments: 21:41 [facility] Payment Agreement [place] 23:20 Admission Orders sew 06/28 08:53 T-Sheet-- Draft Copy Chart Complete [facility]
--- NOTE | 2016-06-29 04:22 | EDDOCDS ---
Nurse's Notes [facility] Name: Mahsa Frankel Age: 26 yrs Sex: Female : 1990 Arrival Date: 06/26/2016 Time: 19:11 Bed I6 Private MD: NO PRIMARY PHYSICIAN, . Diagnosis: Acute cholecystitis;Urinary tract infection, site not specified;Other ovarian cysts-Right;Splenomegaly, not elsewhere classified;Fatty (change of) liver, not elsewhere classified Presentation: 06/26 19:18 Presenting complaint: Patient states: "my period has been abdnormal, and I get a lot of ead back pain." Reports onset of cycle on 06/20. "I feel like I've got a bag of rocks in my stomach.". Acute neurological deficits are not present. Mechanism of Injury: No Mechanism of Injury. Adult Sepsis Screening: The patient does not have new or worsening altered mentation. Patient's respiratory rate is less than 22. Systolic blood pressure is greater than 100. Patient has a qSOFA score of 0- Negative Sepsis Screen. Suicide/Homicide risk assessment- the patient denies having any suicidal and/or homicidal ideations and does not present with any other emotional, behavioral or mental health complaints. Status: Patient is not a vending route servicer or dependent. Transition of care: patient was not received from another setting of care. 19:18 Acuity: CATHIE Level 3 ead 19:18 Method Of Arrival: Walkin/Carried/Asstd ead Triage Assessment: 19:20 General: Appears in no apparent distress, uncomfortable, Behavior is appropriate for ead age, cooperative. Pain: Location: back and abdomen. HIV screening NA for this visit Offered previously. Neurological: Level of Consciousness is awake, alert, Oriented to person, place, time. Respiratory: Airway is patent Respiratory effort is even, unlabored. GI: Reports lower abdominal pain. : Denies vaginal bleeding. Derm: Skin is pink, warm & dry. Derm: Reports rash to left groin. Musculoskeletal: Reports pain in low back area and left low back. CONTRACT RECRUITER: 19:20 LMP 06/20/2016 ead Historical: - Allergies: hydrocodone (Anaphylaxis); - Home Meds: 1. nexaplon - PMHx: none; - PSHx: D & C; ORIF Right Ankle; - Social history: Smoking status: Patient uses tobacco products, current every day smoker. No barriers to communication noted, The patient speaks fluent Croatian, Speaks appropriately for age. - Family history: Not pertinent. - : The pt / caregiver states he / she is not on anticoagulants. Home medication list is obtained from the patient. - Exposure Risk Screening:: None identified. Screenin:51 Screening information is obtained from the patient. Fall risk: No risks identified. kas2 Assistance ADL's: requires no assistance with activities of daily living. Abuse/DV Screen: The patient / caregiver reports he/she is: not in a situation that causes fear, pain or injury. Nutritional screening: No deficits noted. Advance Directives: Currently, there is no health care proxy. There is no active DNR order. There is no living will. There is no Power of Paid Search Manager. home support is adequate. Assessment: 21:49 General: Appears in no apparent distress, uncomfortable, well nourished, well groomed, kas2 Behavior is appropriate for age, cooperative. Pain: Location: left low back and low back area and abdomen and back Pain currently is 8 out of 10 on a pain scale. Neurological: Level of Consciousness is awake, alert, Oriented to person, place, time. Cardiovascular: Capillary refill < 3 seconds Rhythm is regular. Respiratory: Airway is patent Respiratory effort is even, unlabored, Respiratory pattern is regular, symmetrical, Breath sounds are clear bilaterally. :. Derm: Skin is intact, is healthy with good turgor, Skin is dry, Skin is pink, warm & dry. normal, Skin temperature is warm. 22:15 General: Patient gone to US via wheelchair.. kas2 22:40 General: Patient back from US via wheelchair with tech. Resettled in bed. Patient kas2 states pain is much better in abdomen 2/10. No apparent distress. Will continue to monitor.. 06/27 00:17 General: Appears in no apparent distress, Behavior is appropriate for age, cooperative, ka4 pleasant. Respiratory: Airway is patent Respiratory effort is even, unlabored, Respiratory pattern is regular, symmetrical. Derm: Skin is intact, is healthy with good turgor, Skin is pink, warm & dry. 00:35 General: Patient sleeping at this time. No apparent distress noted. Appears kas2 comfortable. Call alexander within reach. Will continue to monitor.. 01:24 General: Appears in no apparent distress, comfortable, well nourished, well groomed, kas2 Behavior is appropriate for age, cooperative, pleasant. Pain: Denies pain. Neurological: Level of Consciousness is awake, alert, Oriented to person, place, time. Cardiovascular: Capillary refill < 3 seconds Heart tones present Rhythm is regular. Respiratory: Airway is patent Respiratory effort is even, unlabored, Respiratory pattern is regular, symmetrical, Breath sounds are clear bilaterally. GI: Abdomen is obese, Bowel sounds present X 4 quads. Abd is soft X 4 quads Abd is tender to palpation X 4 quads. : No deficits noted. Derm: Skin is intact, is healthy with good turgor, Skin is dry, Skin is pink, warm & dry. normal, Skin temperature is warm. 02:15 General: Patient sleeping at this time. Denies pain or discomfort at this time. No kas2 apparent distress. Call alexander within reach. Will continue to monitor.. Vital Signs: 06/26 19:13 BP 108 / 79; Pulse 110; Resp 16; Temp 97.7; Pulse Ox 100% ; Weight 164.65 kg; Height 5 cmb ft. 9 in. (175.26 cm); Pain 9/10; 22:40 BP 110 / 72; Pulse 92; Resp 18; Temp 97.0; Pulse Ox 99% ; Pain 5/10; kas2 06/27 00:30 BP 122 / 74; Pulse 89; Resp 18; Temp 98.2(O); Pulse Ox 99% ; Pain 2/10; kas2 00:51 BP 124 / 65; Pulse 90; Resp 18; Temp 98.3; Pulse Ox 99% ; Pain 1/10; kas2 02:40 BP 118 / 70; Pulse 85; Resp 18; Temp 98.0(O); Pulse Ox 99% on R/A; Pain 0/10; kas2 06/26 19:13 Body Mass Index 53.61 (164.65 kg, 175.26 cm) cmb Vitals: 06/26 19:13 Log In Time: June 26, 2016 at 19:11. cmb ED Course: 19:13 Patient visited by Radha Latham. cmb 19:13 NO PRIMARY PHYSICIAN, . is Private Physician. cmb 19:13 Patient moved to Waiting cmb 19:15 Patient moved to Pre RCE cmb 19:20 Triage Initiated ead 20:12 Patient moved to Triage 1 cln 20:57 Carlyn Conner PA-C is PHCP. ef1 20:57 Jose Hodges DO is Attending Physician. ef1 20:57 Patient visited by Carlyn Conner PA-C. ef1 21:13 Patient moved to I6 / jmb 21:18 Urinalysis Sent. ead 21:18 Urine Culture Sent. ead 21:21 Patient visited by Prabha Thorpe RN. ead 21:34 Patient moved to Ultrasound br3 21:41 [facility] Payment Agreement was scanned into [employer] and attached to record. jpb 21:49 Patient moved to I6 / br3 21:51 Patient visited by Ttai King RN. kas2 21:51 Inserted saline lock: 22 gauge in right hand The patient tolerated the procedure well. kas2 No procedures done that require assistance. 22:37 Patient visited by Tati King RN. kas2 22:46 Patient visited by Tati King RN. kas2 23:01 Patient visited by Tati King RN. kas2 23:12 Jonathan Canela DO is Hospitalizing Provider. ef1 23:20 Admission Orders was scanned into [employer] and attached to record. sew 23:32 CT ABD & PELVIS: No Contrast Returned. EDMS 23:32 Gallbladder US Returned. EDMS 23:32 -US Pelvic Non-Ob Complete Returned. EDMS 06/27 00:17 Patient visited by Mireille Deal LPN. ka4 00:37 Patient visited by Tati King RN. kas2 01:25 Patient visited by Tati King RN. kas2 02:15 Patient visited by Tati King RN. kas2 02:52 Patient visited by Tati King RN. kas2 02:52 The patient / caregiver is instructed regarding the plan of care and ED course. kas2 03:09 Patient visited by Tati King RN. kas2 06/28 08:53 T-Sheet-- Draft Copy was scanned into [employer] and attached to record. gb Administered Medications: 06/26 21:49 Drug: NS 0.9% 1000 ml [sodium chloride 0.9 % intravenous solution] Route: IV; Rate: kas2 bolus; Site: right hand; 06/27 02:13 Follow up: IV Status: Completed infusion; IV Intake: 1000ml kas2 06/26 21:49 Drug: Ondansetron 4 mg [ondansetron HCl 2 mg/mL intravenous solution (2 mL)] Route: kas2 IVP; Site: right hand; 21:49 Drug: ketorolac 30 mg [ketorolac 30 mg/mL (1 mL) injection solution (1 mL)] Route: IVP; [facility] Site: right hand; 23:12 Drug: morphine 4 mg [morphine 4 mg/mL intravenous cartridge (1 mL)] Route: IVP; Site: [facility] right hand; 06/27 00:51 Follow up: BP 124 / 65; Pulse 90 bpm; Resp 18 bpm; Temp 98.3; Pulse Ox 99% ; Pain 07/02 [facility] Adult; Response: No Adverse Reaction; Pain is decreased 06/26 23:26 Drug: cefTRIAXone 1 grams [ceftriaxone 1 gram solution for injection] Route: IVPB; kas2 Infused Over: 30 mins; Site: right hand; Point of Care Testing: Urine : 21:23 hCG Reading: Negative; Control Reading: Positive; ead Ranges: Intake: 06/27 02:13 IV: 1000.00ml; Total: 1000.00ml. [facility] Order Results: Lab Order: Amylase; SPEC'M 06/26/16 22:02 Test: AMYLASE; Value: 25; Range: 25-115; Units: U/L; Status: F Lab Order: Basic Metabolic Profile; SPEC'M 06/26/16 22:02 Test: GLUCOSE, FASTING; Value: 80; Range: 70-105; Units: MG/DL; Status: F Test: BLOOD UREA NITROGEN; Value: 10; Range: 7-18; Units: MG/DL; Status: F Test: CREATININE FOR GFR; Value: 0.65; Range: 0.55-1.02; Units: MG/DL; Status: F Test: GLOMERULAR FILTRATION RATE; Value: > 60.0; Range: >60; Status: F Test: SODIUM LEVEL; Value: 140; Range: 136-145; Units: MEQ/L; Status: F Test: POTASSIUM SERUM; Value: 4.4; Range: 3.5-5.1; Units: MEQ/L; Status: F Test: CHLORIDE LEVEL; Value: 104; Range: 98-107; Units: MEQ/L; Status: F Test: CARBON DIOXIDE LEVEL; Value: 27; Range: 21-32; Units: MEQ/L; Status: F Test: ANION GAP; Value: 9; Range: 8-16; Units: MEQ/L; Status: F Test: CALCIUM LEVEL; Value: 8.6; Range: 8.5-10.1; Units: MG/DL; Status: F Test Note: ; Units are mL/min/1.73 m2 Chronic Kidney Disease Staging per NKF: Stage I & II GFR >=60 Normal to Mildly Decreased Stage III GFR 30-59 Moderately Decreased Stage IV GFR 15-29 Severely Decreased Stage V GFR <15 Very Little GFR Left ESRD GFR <15 on CRAB BUTCHER Lab Order: CBC with Diff; SPEC'M 06/26/16 22:02 Test: WHITE BLOOD COUNT; Value: 11.6; Range: 4.0-10.0; Abnormal: Above high normal; Units: K/mm3; Status: F Test: RED BLOOD COUNT; Value: 4.46; Range: 4.00-5.40; Units: M/mm3; Status: F Test: HEMOGLOBIN; Value: 12.9; Range: 12.0-16.0; Units: g/dl; Status: F Test: HEMATOCRIT; Value: 39.4; Range: 36.0-47.0; Units: %; Status: F Test: MEAN CORPUSCULAR VOLUME; Value: 88.3; Range: 80.0-96.0; Units: fl; Status: F Test: MEAN CORPUSCULAR HEMOGLOBIN; Value: 28.8; Range: 27.0-33.0; Units: pg; Status: F Test: MEAN CORPUSCULAR HGB CONC; Value: 32.6; Range: 32.0-36.5; Units: g/dl; Status: F Test: RED CELL DISTRIBUTION WIDTH; Value: 12.6; Range: 11.5-14.5; Units: %; Status: F Test: PLATELET COUNT, AUTOMATED; Value: 277; Range: 150-450; Units: k/mm3; Status: F Test: NEUTROPHILS %; Value: 78.8; Range: 36.0-66.0; Abnormal: Above high normal; Units: %; Status: F Test: LYMPH %; Value: 12.9; Range: 24.0-44.0; Abnormal: Below low normal; Units: %; Status: F Test: MONO %; Value: 5.2; Range: 0.0-5.0; Abnormal: Above high normal; Units: %; Status: F Test: EOS %; Value: 1.4; Range: 0.0-3.0; Units: %; Status: F Test: BASO %; Value: 0.3; Range: 0.0-1.0; Units: %; Status: F Test: LARGE UNSTAINED CELL %; Value: 1.4; Range: 0.0-4.0; Units: %; Status: F Test: NEUTROPHILS #; Value: 9.1; Range: 1.8-7.7; Abnormal: Above high normal; Units: K/mm3; Status: F Test: LYMPH #; Value: 1.5; Range: 1.5-6.5; Units: K/mm3; Status: F Test: MONO #; Value: 0.6; Range: 0.0-0.8; Units: K/mm3; Status: F Test: EOS #; Value: 0.2; Range: 0.0-0.50; Units: K/mm3; Status: F Test: BASO #; Value: 0.0; Range: 0.0-0.2; Units: K/mm3; Status: F Test: LARGE UNSTAINED CELL #; Value: 0.2; Range: 0.0-0.4; Units: K/mm3; Status: F Lab Order: Lipase; SPEC' 06/26/16 22:02 Test: LIPASE; Value: 107; Range: 73-393; Units: U/L; Status: F Lab Order: Liver Profile; SPEC'M 06/26/16 22:02 Test: AST/SGOT; Value: 11; Range: 15-37; Abnormal: Below low normal; Units: U/L; Status: F Test: ALT/SGPT; Value: 20; Range: 12-78; Units: U/L; Status: F Test: ALKALINE PHOSPHATASE; Value: 96; Range: 45-117; Units: U/L; Status: F Test: BILIRUBIN,TOTAL; Value: 0.8; Range: 0.2-1.0; Units: MG/DL; Status: F Test: BILIRUBIN,DIRECT; Value: 0.2; Range: 0.0-0.2; Units: MG/DL; Status: F Test: TOTAL PROTEIN; Value: 7.4; Range: 6.4-8.2; Units: GM/DL; Status: F Test: ALBUMIN; Value: 3.4; Range: 3.2-5.2; Units: GM/DL; Status: F Test: ALBUMIN/GLOBULIN RATIO; Value: 0.85; Range: 1.00-1.93; Abnormal: Below low normal; Status: F Lab Order: Urinalysis; SPEC'M 06/26/16 21:17 Test: APPEARANCE, URINE; Value: CLOUDY; Range: CLEAR; Abnormal: Above high normal; Status: F Test: COLOR, URINE; Value: YELLOW; Range: YELLOW; Status: F Test: PH,URINE; Value: 5.0; Range: 5.0-9.0; Units: UNITS; Status: F Test: SPECIFIC GRAVITY URINE AUTO; Value: 1.013; Range: 1.002-1.035; Status: F Test: PROTEIN, URINE AUTO; Value: 2+; Range: NEGATIVE; Abnormal: Above high normal; Units: mg/dL; Status: F Test: GLUCOSE, URINE (UA) AUTO; Value: NEGATIVE; Range: NEGATIVE; Units: mg/dL; Status: F Test: KETONE, URINE AUTO; Value: NEGATIVE; Range: NEGATIVE; Units: mg/dL; Status: F Test: UROBILINOGEN, URINE AUTO; Value: 0.2; Range: 0.0-2.0; Units: mg/dL; Status: F Test: BILIRUBIN, URINE AUTO; Value: NEGATIVE; Range: NEGATIVE; Status: F Test: NITRITE, URINE AUTO; Value: POSITIVE; Range: NEGATIVE; Status: F Test: LEUKOCYTE ESTERASE, URINE AUTO; Value: 3+; Range: NEGATIVE; Abnormal: Above high normal; Status: F Test: BLOOD, URINE BLOOD; Value: 2+; Range: NEGATIVE; Abnormal: Above high normal; Status: F Test: WBC, URINE AUTO; Value: TNTC; Range: 0-3; Abnormal: Above high normal; Units: /HPF; Status: F Test: RBC, URINE AUTO; Value: 29; Range: 0-3; Abnormal: Above high normal; Units: /HPF; Status: F Test: BACTERIA, URINE AUTO; Value: 2+; Range: NEGATIVE; Abnormal: Above high normal; Status: F Test: SQUAMOUS EPITHELIAL CELL UR AU; Value: 1; Range: 0-6; Units: /HPF; Status: F Test: MUCUS, URINE; Value: SMALL; Range: NEGATIVE; Status: F Test: HYALINE CAST, URINE AUTO; Value: 0; Range: 0-1; Units: /LPF; Status: F Radiology Order: CT ABD & PELVIS: No Contrast Test: CT ABD & PELVIS: No Contrast REASON FOR EXAMINATION: Renal colic; ; CLINICAL HISTORY: Renal colic.; TECHNIQUE: Multiple axial, sagittal and coronal CT images were obtained through the abdomen and pelvi; s without administration of oral or IV contrast material.; COMMENTS:; The liver is of uniform attenuation without mass or defect. There is no intra or extrahepatic biliary; ductal dilatation. The spleen is enlarged, 16 CM. Gallbladder is packed with calcified stones. The; pancreas is of normal contour and attenuation characteristics. There is no evidence of adrenal mass.; The kidneys are normal in size, shape and configuration. No renal or ureteral calculi are identified.; There is no hydroureter or hydronephrosis.; There is no evidence for appendicitis. There is no bowel wall thickening. No evidence for small or la; rge bowel obstruction. There is no evidence of abdominal ascites or lymphadenopathy.; There is no evidence of intrinsic or extrinsic bladder mass. There is no pelvic ascites or lymphadeno; angle.; 4 x 6 cm right ovarian cyst is seen. Uterus and left ovary are unremarkable.; Images of the lung bases show no evidence of pleural or parenchymal mass. There are no pleural effusi; ons.; The bony structures are free of lytic or blastic lesions.; IMPRESSION:; Gallbladder is packed with calcified stones.; Splenomegaly.; No renal or ureteral calculi are identified.; 4 x 6 cm right ovarian cyst. Consider correlation with pelvic ultrasound.; Thank you for your kind referral of this patient.; ; Radiology Order: Gallbladder US Test: Gallbladder US REASON FOR EXAMINATION: Biliary Colic; ; HISTORY: Biliary colic; TECHNIQUE: Right upper quadrant ultrasound.; ; COMPARISON: Same-day CT abdomen.; ; ULTRASOUND RUQ:; Liver: No intrahepatic ductal dilation. Diffusely increased hepatic echotexture consistent with fatty; infiltration.; Gallbladder: Filled with stones, with mild wall thickening at 3 mm, and positive sonographic Marcos's; sign.; Common bile duct: Nondistended at 4.8 mm.; Pancreas: Poorly visualized due to overlying bowel gas. No pancreatic duct dilation.; Right kidney: 11.1 x 6.3 x 5.1 cm. No stones or hydronephrosis.; Peritoneum: No free fluid.; IMPRESSION:; Cholelithiasis. Positive sonographic Marcos's sign can be seen in acute cholecystitis. Correlate clin; ically.; ; Radiology Order: -US Pelvic Non-Ob Complete Test: -US Pelvic Non-Ob Complete REASON FOR EXAMINATION: Adnexal Pain r/o Torsion; ; CLINICAL HISTORY: Adnexa pain; TECHNIQUE: Ultrasound of the pelvis was performed. Transabdominal and endovaginal exams were performe; d.; COMPARISON: Same-day pelvic ultrasound.; ULTRASOUND PELVIS :; ; Uterus: 9.3 x 5.0 x 6.0 cm. Normal without masses.; ; Endometrial stripe: 16 mm thickness.; ; Right ovary: 6.5 x 5.0 x 6.1 cm. There is a simple cyst measuring 6.3 cm. Normal vascular flow.; ; Left ovary: 4.1 x 2.9 x 3.0 cm. No masses. Normal vascular flow.; ; Pelvic fluid: Physiologic.; ; IMPRESSION: Large 6.3 cm right ovarian cyst. Normal ovarian vascular flow bilaterally.; ; Outcome: 06/26 23:13 Decision to Hospitalize by Provider. ef1 06/27 02:51 Discharge Assessment: patient administered narcotics - yes. Patient was admitted to the [address] or transferred to another facility. The following High Risk Discharge criteria are identified: None. Admitted to Med/Surg accompanied by tech, via stretcher, with chart. Condition: good Condition: stable Condition: improved. Ultrasound Study completed. Property :Personal belongings accompany Pt. 03:21 Patient left the ED. sls1 Signatures: Dispatcher V2contact [facility], Susanne, Reg Reg gb Dalila, Carlyn, PA-C PA-C ef1 Maia Monique br3 Kat Fermin, RN RN sls1 Nitin Hansen [place] cmb Jean Pierre, Anthony Basilio RN RN jcb Prabha ThorpeRN RN renaed Mireille Deal,SOLAR SALES SPECIALIST SOLAR SALES SPECIALIST ka4 Tati King RN RN kas2 Memo, Whitney, CERTIFIED FIRE INVESTIGATOR CERTIFIED FIRE INVESTIGATOR cln Chart Complete MTDD
--- NOTE | 2016-06-29 04:22 | EDDOCDS ---
Physician Documentation [facility] Name: Mahsa Frankel Age: 26 yrs Sex: Female : 1990 Arrival Date: 06/26/2016 Time: 19:11 Bed I6 / 28 Private MD: NO PRIMARY PHYSICIAN, . Disposition: 06/26/16 23:13 Hospitalization ordered by Jonathan Canela for Inpatient Admission. Preliminary diagnosis are Acute cholecystitis, Urinary tract infection, site not specified, Other ovarian cysts - Right, Splenomegaly, not elsewhere classified, Fatty (change of) liver, not elsewhere classified. - Bed requested for [address] [place]. - Status is Inpatient Admission. sls1 - Condition is Stable. - Problem is new. - Symptoms have improved. Historical: - Allergies: hydrocodone (Anaphylaxis); - Home Meds: 1. nexaplon - PMHx: none; - PSHx: D & C; ORIF Right Ankle; - Social history: Smoking status: Patient uses tobacco products, current every day smoker. No barriers to communication noted, The patient speaks fluent Yi, Speaks appropriately for age. - Family history: Not pertinent. - : The pt / caregiver states he / she is not on anticoagulants. Home medication list is obtained from the patient. - Exposure Risk Screening:: None identified. RESOURCING ADVISOR: 06/26 19:20 LMP 06/20/2016 ead Vital Signs: 19:13 BP 108 / 79; Pulse 110; Resp 16; Temp 97.7; Pulse Ox 100% ; Weight 164.65 kg / 362.99 cmb lbs; Height 5 ft. 9 in. (175.26 cm); Pain 9/10; 22:40 BP 110 / 72; Pulse 92; Resp 18; Temp 97.0; Pulse Ox 99% ; Pain 5/10; kas2 06/27 00:30 BP 122 / 74; Pulse 89; Resp 18; Temp 98.2(O); Pulse Ox 99% ; Pain 2/10; kas2 00:51 BP 124 / 65; Pulse 90; Resp 18; Temp 98.3; Pulse Ox 99% ; Pain 1/10; kas2 02:40 BP 118 / 70; Pulse 85; Resp 18; Temp 98.0(O); Pulse Ox 99% on R/A; Pain 0/10; kas2 06/26 19:13 Body Mass Index 53.61 (164.65 kg, 175.26 cm) cmb MDM: 06/26 21:06 Financial registration complete. jpb 21:12 NS 0.9% 1000 ml IV at bolus once ordered. ef1 21:12 Ondansetron 4 mg IVP once ordered. ef1 21:12 ketorolac 30 mg IVP once ordered. ef1 21:12 IV Saline Lock ordered. ef1 21:12 Undress patient appropriately for examination ordered. ef1 21:12 UCG by Nursing ordered. ef1 21:13 Amylase Ordered. EDMS 21:13 Basic Metabolic Profile Ordered. EDMS 21:13 CBC with Diff Ordered. EDMS 21:13 Lipase Ordered. EDMS 21:13 Liver Profile Ordered. EDMS 21:13 Urinalysis Ordered. EDMS 21:13 Urine Culture Ordered. EDMS 21:13 CT ABD & PELVIS: No Contrast Ordered. EDMS 21:13 NOTHING BY MOUTH+DIET ordered. EDMS 21:14 Gallbladder US Ordered. EDMS 21:24 -US Pelvic Non-Ob Complete Ordered. EDMS 21:24 DUPLEX SCAN LIMITED (DOPPLER)+US Ordered. EDMS 21:33 Transvaginal NON- US Ordered. EDMS 21:41 [facility] Payment Agreement was scanned into [employer] and attached to record. jpb 22:50 CBC with Diff Reviewed. ef1 22:50 Liver Profile Reviewed. ef1 22:50 Urinalysis Reviewed. ef1 22:50 Amylase Reviewed. ef1 22:50 Basic Metabolic Profile Reviewed. ef1 22:50 Lipase Reviewed. ef1 23:05 morphine 4 mg IVP once ordered. ef1 23:07 BED REQUEST+ADM ordered. EDMS 23:13 cefTRIAXone 1 grams IVPB once over 30 mins; dilute in 50mL of NS or D5W ordered. ef1 23:20 Admission Orders was scanned into [employer] and attached to record. [facility] [place] 06/27 02:58 Admission / Observation Status ordered. EDMS 06/28 08:53 T-Sheet-- Draft Copy was scanned into [employer] and attached to record. gb Point of Care Testing: Urine : 06/26 21:23 hCG Reading: Negative; Control Reading: Positive; ead Ranges: Administered Medications: 21:49 Drug: NS 0.9% 1000 ml [sodium chloride 0.9 % intravenous solution] Route: IV; Rate: kas2 bolus; Site: right hand; 06/27 02:13 Follow up: IV Status: Completed infusion; IV Intake: 1000ml kas2 06/26 21:49 Drug: Ondansetron 4 mg [ondansetron HCl 2 mg/mL intravenous solution (2 mL)] Route: kas2 IVP; Site: right hand; 21:49 Drug: ketorolac 30 mg [ketorolac 30 mg/mL (1 mL) injection solution (1 mL)] Route: IVP; [facility] Site: right hand; 23:12 Drug: morphine 4 mg [morphine 4 mg/mL intravenous cartridge (1 mL)] Route: IVP; Site: [facility] right hand; 06/27 00:51 Follow up: BP 124 / 65; Pulse 90 bpm; Resp 18 bpm; Temp 98.3; Pulse Ox 99% ; Pain 07/02 kas2 Adult; Response: No Adverse Reaction; Pain is decreased 06/26 23:26 Drug: cefTRIAXone 1 grams [ceftriaxone 1 gram solution for injection] Route: IVPB; kas2 Infused Over: 30 mins; Site: right hand; Signatures: Dispatcher [employer] EDMS Sindi Lundberg RN RN Susanne Koehler, Reg Reg Carlyn Quan, PA-C PA-C Kat Mcnally, RN RN Nitin Becker Sarah sew [place], EmilyRN Tati Oliver RN RN kas2 The chart was reviewed and I authenticate all verbal orders and agree with the evaluation and treatment provided.Attachments: 21:41 [facility] Payment Agreement milo 23:20 Admission Orders sew 06/28 08:53 T-Sheet-- Draft Copy Chart Complete [facility]
--- NOTE | 2016-07-02 09:33 | EDDOCDS ---
Physician Documentation [facility] Name: Mahsa Frankel Age: 26 yrs Sex: Female : 1990 Arrival Date: 06/26/2016 Time: 19:11 Bed I6 / 28 Private MD: NO PRIMARY PHYSICIAN, . Disposition: 06/26/16 23:13 Hospitalization ordered by Jonathan Canela for Inpatient Admission. Preliminary diagnosis are Acute cholecystitis, Urinary tract infection, site not specified, Other ovarian cysts - Right, Splenomegaly, not elsewhere classified, Fatty (change of) liver, not elsewhere classified. - Bed requested for 4 [place]. - Status is Inpatient Admission. sls1 - Condition is Stable. - Problem is new. - Symptoms have improved. Historical: - Allergies: hydrocodone (Anaphylaxis); - Home Meds: 1. nexaplon - PMHx: none; - PSHx: D & C; ORIF Right Ankle; - Social history: Smoking status: Patient uses tobacco products, current every day smoker. No barriers to communication noted, The patient speaks fluent Yoruba, Speaks appropriately for age. - Family history: Not pertinent. - : The pt / caregiver states he / she is not on anticoagulants. Home medication list is obtained from the patient. - Exposure Risk Screening:: None identified. 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 9 in. (175.26 cm); Pain 9/10; 22:40 BP 110 / 72; Pulse 92; Resp 18; Temp 97.0; Pulse Ox 99% ; Pain 5/10; kas2 06/27 00:30 BP 122 / 74; Pulse 89; Resp 18; Temp 98.2(O); Pulse Ox 99% ; Pain 2/10; kas2 00:51 BP 124 / 65; Pulse 90; Resp 18; Temp 98.3; Pulse Ox 99% ; Pain 1/10; kas2 02:40 BP 118 / 70; Pulse 85; Resp 18; Temp 98.0(O); Pulse Ox 99% on R/A; Pain 0/10; kas2 06/26 19:13 Body Mass Index 53.61 (164.65 kg, 175.26 cm) cmb MDM: 06/26 21:06 Financial registration complete. jpb 21:12 NS 0.9% 1000 ml IV at bolus once ordered. ef1 21:12 Ondansetron 4 mg IVP once ordered. ef1 21:12 ketorolac 30 mg IVP once ordered. ef1 21:12 IV Saline Lock ordered. ef1 21:12 Undress patient appropriately for examination ordered. ef1 21:12 UCG by Nursing ordered. ef1 21:13 Amylase Ordered. EDMS 21:13 Basic Metabolic Profile Ordered. EDMS 21:13 CBC with Diff Ordered. EDMS 21:13 Lipase Ordered. EDMS 21:13 Liver Profile Ordered. EDMS 21:13 Urinalysis Ordered. EDMS 21:13 Urine Culture Ordered. EDMS 21:13 CT ABD & PELVIS: No Contrast Ordered. EDMS 21:13 NOTHING BY MOUTH+DIET ordered. EDMS 21:14 Gallbladder US Ordered. EDMS 21:24 -US Pelvic Non-Ob Complete Ordered. EDMS 21:24 DUPLEX SCAN LIMITED (DOPPLER)+US Ordered. EDMS 21:33 Transvaginal NON- US Ordered. EDMS 21:41 [facility] Payment Agreement was scanned into [employer] and attached to record. jpb 22:50 CBC with Diff Reviewed. ef1 22:50 Liver Profile Reviewed. ef1 22:50 Urinalysis Reviewed. ef1 22:50 Amylase Reviewed. ef1 22:50 Basic Metabolic Profile Reviewed. ef1 22:50 Lipase Reviewed. ef1 23:05 morphine 4 mg IVP once ordered. ef1 23:07 BED REQUEST+ADM ordered. EDMS 23:13 cefTRIAXone 1 grams IVPB once over 30 mins; dilute in 50mL of NS or D5W ordered. ef1 23:20 Admission Orders was scanned into [employer] and attached to record. [facility] [place] 06/27 02:58 Admission / Observation Status ordered. EDMS 06/28 08:53 T-Sheet-- Draft Copy was scanned into [employer] and attached to record. gb Point of Care Testing: Urine : 06/26 21:23 hCG Reading: Negative; Control Reading: Positive; ead Ranges: Administered Medications: 21:49 Drug: NS 0.9% 1000 ml [sodium chloride 0.9 % intravenous solution] Route: IV; Rate: kas2 bolus; Site: right hand; 06/27 02:13 Follow up: IV Status: Completed infusion; IV Intake: 1000ml kas2 06/26 21:49 Drug: Ondansetron 4 mg [ondansetron HCl 2 mg/mL intravenous solution (2 mL)] Route: kas2 IVP; Site: right hand; 21:49 Drug: ketorolac 30 mg [ketorolac 30 mg/mL (1 mL) injection solution (1 mL)] Route: IVP; [facility] Site: right hand; 23:12 Drug: morphine 4 mg [morphine 4 mg/mL intravenous cartridge (1 mL)] Route: IVP; Site: [facility] right hand; 06/27 00:51 Follow up: BP 124 / 65; Pulse 90 bpm; Resp 18 bpm; Temp 98.3; Pulse Ox 99% ; Pain 07/02 kas2 Adult; Response: No Adverse Reaction; Pain is decreased 06/26 23:26 Drug: cefTRIAXone 1 grams [ceftriaxone 1 gram solution for injection] Route: IVPB; kas2 Infused Over: 30 mins; Site: right hand; Signatures: Dispatcher [employer] EDMS Sindi Lundberg RN RN Susanne Koehler, Reg Reg Carlyn Quan, PA-C PA-C Kat Mcnally, RN RN Nitin Becker Sarah sew Dunaway, EmilyRN Tati Oliver RN RN kas2 The chart was reviewed and I authenticate all verbal orders and agree with the evaluation and treatment provided.Attachments: 21:41 [facility] Payment Agreement milo 23:20 Admission Orders sew 06/28 08:53 T-Sheet-- Draft Copy Chart Complete [facility]
--- NOTE | 2016-07-02 09:33 | EDDOCDS ---
Physician Documentation [facility] Name: Mahsa Frankel Age: 26 yrs Sex: Female : 1990 Arrival Date: 06/26/2016 Time: 19:11 Bed I6 / 28 Private MD: NO PRIMARY PHYSICIAN, . Disposition: 06/26/16 23:13 Hospitalization ordered by Jonathan Canela for Inpatient Admission. Preliminary diagnosis are Acute cholecystitis, Urinary tract infection, site not specified, Other ovarian cysts - Right, Splenomegaly, not elsewhere classified, Fatty (change of) liver, not elsewhere classified. - Bed requested for 4 [place]. - Status is Inpatient Admission. sls1 - Condition is Stable. - Problem is new. - Symptoms have improved. Historical: - Allergies: hydrocodone (Anaphylaxis); - Home Meds: 1. nexaplon - PMHx: none; - PSHx: D & C; ORIF Right Ankle; - Social history: Smoking status: Patient uses tobacco products, current every day smoker. No barriers to communication noted, The patient speaks fluent Faroese, Speaks appropriately for age. - Family history: Not pertinent. - : The pt / caregiver states he / she is not on anticoagulants. Home medication list is obtained from the patient. - Exposure Risk Screening:: None identified. 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 9 in. (175.26 cm); Pain 9/10; 22:40 BP 110 / 72; Pulse 92; Resp 18; Temp 97.0; Pulse Ox 99% ; Pain 5/10; kas2 06/27 00:30 BP 122 / 74; Pulse 89; Resp 18; Temp 98.2(O); Pulse Ox 99% ; Pain 2/10; kas2 00:51 BP 124 / 65; Pulse 90; Resp 18; Temp 98.3; Pulse Ox 99% ; Pain 1/10; kas2 02:40 BP 118 / 70; Pulse 85; Resp 18; Temp 98.0(O); Pulse Ox 99% on R/A; Pain 0/10; kas2 06/26 19:13 Body Mass Index 53.61 (164.65 kg, 175.26 cm) cmb MDM: 06/26 21:06 Financial registration complete. jpb 21:12 NS 0.9% 1000 ml IV at bolus once ordered. ef1 21:12 Ondansetron 4 mg IVP once ordered. ef1 21:12 ketorolac 30 mg IVP once ordered. ef1 21:12 IV Saline Lock ordered. ef1 21:12 Undress patient appropriately for examination ordered. ef1 21:12 UCG by Nursing ordered. ef1 21:13 Amylase Ordered. EDMS 21:13 Basic Metabolic Profile Ordered. EDMS 21:13 CBC with Diff Ordered. EDMS 21:13 Lipase Ordered. EDMS 21:13 Liver Profile Ordered. EDMS 21:13 Urinalysis Ordered. EDMS 21:13 Urine Culture Ordered. EDMS 21:13 CT ABD & PELVIS: No Contrast Ordered. EDMS 21:13 NOTHING BY MOUTH+DIET ordered. EDMS 21:14 Gallbladder US Ordered. EDMS 21:24 -US Pelvic Non-Ob Complete Ordered. EDMS 21:24 DUPLEX SCAN LIMITED (DOPPLER)+US Ordered. EDMS 21:33 Transvaginal NON- US Ordered. EDMS 21:41 [facility] Payment Agreement was scanned into [employer] and attached to record. jpb 22:50 CBC with Diff Reviewed. ef1 22:50 Liver Profile Reviewed. ef1 22:50 Urinalysis Reviewed. ef1 22:50 Amylase Reviewed. ef1 22:50 Basic Metabolic Profile Reviewed. ef1 22:50 Lipase Reviewed. ef1 23:05 morphine 4 mg IVP once ordered. ef1 23:07 BED REQUEST+ADM ordered. EDMS 23:13 cefTRIAXone 1 grams IVPB once over 30 mins; dilute in 50mL of NS or D5W ordered. ef1 23:20 Admission Orders was scanned into Auth[employer] and attached to record. [facility] [place] 06/27 02:58 Admission / Observation Status ordered. EDMS 06/28 08:53 T-Sheet-- Draft Copy was scanned into [employer] and attached to record. gb Point of Care Testing: Urine : 06/26 21:23 hCG Reading: Negative; Control Reading: Positive; ead Ranges: Administered Medications: 21:49 Drug: NS 0.9% 1000 ml [sodium chloride 0.9 % intravenous solution] Route: IV; Rate: kas2 bolus; Site: right hand; 06/27 02:13 Follow up: IV Status: Completed infusion; IV Intake: 1000ml kas2 06/26 21:49 Drug: Ondansetron 4 mg [ondansetron HCl 2 mg/mL intravenous solution (2 mL)] Route: kas2 IVP; Site: right hand; 21:49 Drug: ketorolac 30 mg [ketorolac 30 mg/mL (1 mL) injection solution (1 mL)] Route: IVP; [facility]2 Site: right hand; 23:12 Drug: morphine 4 mg [morphine 4 mg/mL intravenous cartridge (1 mL)] Route: IVP; Site: [facility] right hand; 06/27 00:51 Follow up: BP 124 / 65; Pulse 90 bpm; Resp 18 bpm; Temp 98.3; Pulse Ox 99% ; Pain 07/02 kas2 Adult; Response: No Adverse Reaction; Pain is decreased 06/26 23:26 Drug: cefTRIAXone 1 grams [ceftriaxone 1 gram solution for injection] Route: IVPB; kas2 Infused Over: 30 mins; Site: right hand; Signatures: Dispatcher [employer] EDMS Sindi Lundberg RN RN Susanne Koehler, Reg Reg Carlyn Quan, PA-C PA-C Kat cMnally, RN RN Nitin Becker Sarah sew [place], EmilyRN Tati Oliver RN RN kas2 The chart was reviewed and I authenticate all verbal orders and agree with the evaluation and treatment provided.Attachments: 21:41 [facility] Payment Agreement milo 23:20 Admission Orders sew 06/28 08:53 T-Sheet-- Draft Copy Chart Complete [facility]
--- NOTE | 2016-07-02 09:33 | EDDOCDS ---
Nurse's Notes [facility] Name: Mahsa Frankel Age: 26 yrs Sex: Female : 1990 Arrival Date: 06/26/2016 Time: 19:11 Bed I6 Private MD: NO PRIMARY PHYSICIAN, . Diagnosis: Acute cholecystitis;Urinary tract infection, site not specified;Other ovarian cysts-Right;Splenomegaly, not elsewhere classified;Fatty (change of) liver, not elsewhere classified Presentation: 06/26 19:18 Presenting complaint: Patient states: "my period has been abdnormal, and I get a lot of ead back pain." Reports onset of cycle on 06/20. "I feel like I've got a bag of rocks in my stomach.". Acute neurological deficits are not present. Mechanism of Injury: No Mechanism of Injury. Adult Sepsis Screening: The patient does not have new or worsening altered mentation. Patient's respiratory rate is less than 22. Systolic blood pressure is greater than 100. Patient has a qSOFA score of 0- Negative Sepsis Screen. Suicide/Homicide risk assessment- the patient denies having any suicidal and/or homicidal ideations and does not present with any other emotional, behavioral or mental health complaints. Status: Patient is not a member service specialist or dependent. Transition of care: patient was not received from another setting of care. 19:18 Acuity: CATHIE Level 3 ead 19:18 Method Of Arrival: Walkin/Carried/Asstd ead Triage Assessment: 19:20 General: Appears in no apparent distress, uncomfortable, Behavior is appropriate for ead age, cooperative. Pain: Location: back and abdomen. HIV screening NA for this visit Offered previously. Neurological: Level of Consciousness is awake, alert, Oriented to person, place, time. Respiratory: Airway is patent Respiratory effort is even, unlabored. GI: Reports lower abdominal pain. : Denies vaginal bleeding. Derm: Skin is pink, warm & dry. Derm: Reports rash to left groin. Musculoskeletal: Reports pain in low back area and left low back. 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 nexaplon - PMHx: none; - PSHx: D & C; ORIF Right Ankle; - Social history: Smoking status: Patient uses tobacco products, current every day smoker. No barriers to communication noted, The patient speaks fluent Kyrgyz, Speaks appropriately for age. - Family history: Not pertinent. - : The pt / caregiver states he / she is not on anticoagulants. Home medication list is obtained from the patient. - Exposure Risk Screening:: None identified. Screenin:51 Screening information is obtained from the patient. Fall risk: No risks identified. kas2 Assistance ADL's: requires no assistance with activities of daily living. Abuse/DV Screen: The patient / caregiver reports he/she is: not in a situation that causes fear, pain or injury. Nutritional screening: No deficits noted. Advance Directives: Currently, there is no health care proxy. There is no active DNR order. There is no living will. There is no Power of Director Public Service. home support is adequate. Assessment: 21:49 General: Appears in no apparent distress, uncomfortable, well nourished, well groomed, kas2 Behavior is appropriate for age, cooperative. Pain: Location: left low back and low back area and abdomen and back Pain currently is 8 out of 10 on a pain scale. Neurological: Level of Consciousness is awake, alert, Oriented to person, place, time. Cardiovascular: Capillary refill < 3 seconds Rhythm is regular. Respiratory: Airway is patent Respiratory effort is even, unlabored, Respiratory pattern is regular, symmetrical, Breath sounds are clear bilaterally. :. Derm: Skin is intact, is healthy with good turgor, Skin is dry, Skin is pink, warm & dry. normal, Skin temperature is warm. 22:15 General: Patient gone to US via wheelchair.. kas2 22:40 General: Patient back from US via wheelchair with tech. Resettled in bed. Patient kas2 states pain is much better in abdomen 2/10. No apparent distress. Will continue to monitor.. 06/27 00:17 General: Appears in no apparent distress, Behavior is appropriate for age, cooperative, ka4 pleasant. Respiratory: Airway is patent Respiratory effort is even, unlabored, Respiratory pattern is regular, symmetrical. Derm: Skin is intact, is healthy with good turgor, Skin is pink, warm & dry. 00:35 General: Patient sleeping at this time. No apparent distress noted. Appears kas2 comfortable. Call alexander within reach. Will continue to monitor.. 01:24 General: Appears in no apparent distress, comfortable, well nourished, well groomed, kas2 Behavior is appropriate for age, cooperative, pleasant. Pain: Denies pain. Neurological: Level of Consciousness is awake, alert, Oriented to person, place, time. Cardiovascular: Capillary refill < 3 seconds Heart tones present Rhythm is regular. Respiratory: Airway is patent Respiratory effort is even, unlabored, Respiratory pattern is regular, symmetrical, Breath sounds are clear bilaterally. GI: Abdomen is obese, Bowel sounds present X 4 quads. Abd is soft X 4 quads Abd is tender to palpation X 4 quads. : No deficits noted. Derm: Skin is intact, is healthy with good turgor, Skin is dry, Skin is pink, warm & dry. normal, Skin temperature is warm. 02:15 General: Patient sleeping at this time. Denies pain or discomfort at this time. No kas2 apparent distress. Call alexander within reach. Will continue to monitor.. Vital Signs: 06/26 19:13 BP 108 / 79; Pulse 110; Resp 16; Temp 97.7; Pulse Ox 100% ; Weight 164.65 kg; Height 5 cmb ft. 9 in. (175.26 cm); Pain 9/10; 22:40 BP 110 / 72; Pulse 92; Resp 18; Temp 97.0; Pulse Ox 99% ; Pain 5/10; kas2 06/27 00:30 BP 122 / 74; Pulse 89; Resp 18; Temp 98.2(O); Pulse Ox 99% ; Pain 2/10; kas2 00:51 BP 124 / 65; Pulse 90; Resp 18; Temp 98.3; Pulse Ox 99% ; Pain 1/10; kas2 02:40 BP 118 / 70; Pulse 85; Resp 18; Temp 98.0(O); Pulse Ox 99% on R/A; Pain 0/10; kas2 06/26 19:13 Body Mass Index 53.61 (164.65 kg, 175.26 cm) cmb Vitals: 06/26 19:13 Log In Time: June 26, 2016 at 19:11. cmb ED Course: 19:13 Patient visited by Radha Latham. cmb 19:13 NO PRIMARY PHYSICIAN, . is Private Physician. cmb 19:13 Patient moved to Waiting cmb 19:15 Patient moved to Pre RCE cmb 19:20 Triage Initiated ead 20:12 Patient moved to Triage 1 cln 20:57 Carlyn Conner PA-C is PHCP. ef1 20:57 Jose Hodges DO is Attending Physician. ef1 20:57 Patient visited by Carlyn Conner PA-C. ef1 21:13 Patient moved to I6 / jmb 21:18 Urinalysis Sent. ead 21:18 Urine Culture Sent. ead 21:21 Patient visited by Prabha Thorpe RN. ead 21:34 Patient moved to Ultrasound br3 21:41 [facility] Payment Agreement was scanned into Inn[employer] and attached to record. jpb 21:49 Patient moved to I6 / br3 21:51 Patient visited by Tati King RN. kas2 21:51 Inserted saline lock: 22 gauge in right hand The patient tolerated the procedure well. kas2 No procedures done that require assistance. 22:37 Patient visited by Tati King RN. kas2 22:46 Patient visited by Tati King RN. kas2 23:01 Patient visited by Tati King RN. kas2 23:12 Jonathan Canela DO is Hospitalizing Provider. ef1 23:20 Admission Orders was scanned into Inn[employer] and attached to record. sew 23:32 CT ABD & PELVIS: No Contrast Returned. EDMS 23:32 Gallbladder US Returned. EDMS 23:32 -US Pelvic Non-Ob Complete Returned. EDMS 06/27 00:17 Patient visited by Mireille Deal LPN. ka4 00:37 Patient visited by Tati King RN. kas2 01:25 Patient visited by Tati King RN. kas2 02:15 Patient visited by Tati King RN. kas2 02:52 Patient visited by Tati King RN. kas2 02:52 The patient / caregiver is instructed regarding the plan of care and ED course. kas2 03:09 Patient visited by Tati King RN. kas2 06/28 08:53 T-Sheet-- Draft Copy was scanned into Inn[employer] and attached to record. gb Administered Medications: 06/26 21:49 Drug: NS 0.9% 1000 ml [sodium chloride 0.9 % intravenous solution] Route: IV; Rate: kas2 bolus; Site: right hand; 06/27 02:13 Follow up: IV Status: Completed infusion; IV Intake: 1000ml kas2 06/26 21:49 Drug: Ondansetron 4 mg [ondansetron HCl 2 mg/mL intravenous solution (2 mL)] Route: kas2 IVP; Site: right hand; 21:49 Drug: ketorolac 30 mg [ketorolac 30 mg/mL (1 mL) injection solution (1 mL)] Route: IVP; [facility] Site: right hand; 23:12 Drug: morphine 4 mg [morphine 4 mg/mL intravenous cartridge (1 mL)] Route: IVP; Site: [facility] right hand; 06/27 00:51 Follow up: BP 124 / 65; Pulse 90 bpm; Resp 18 bpm; Temp 98.3; Pulse Ox 99% ; Pain 07/02 [facility] Adult; Response: No Adverse Reaction; Pain is decreased 06/26 23:26 Drug: cefTRIAXone 1 grams [ceftriaxone 1 gram solution for injection] Route: IVPB; kas2 Infused Over: 30 mins; Site: right hand; Point of Care Testing: Urine : 21:23 hCG Reading: Negative; Control Reading: Positive; ead Ranges: Intake: 06/27 02:13 IV: 1000.00ml; Total: 1000.00ml. [facility] Order Results: Lab Order: Amylase; SPEC'M 06/26/16 22:02 Test: AMYLASE; Value: 25; Range: 25-115; Units: U/L; Status: F Lab Order: Basic Metabolic Profile; SPEC'M 06/26/16 22:02 Test: GLUCOSE, FASTING; Value: 80; Range: 70-105; Units: MG/DL; Status: F Test: BLOOD UREA NITROGEN; Value: 10; Range: 7-18; Units: MG/DL; Status: F Test: CREATININE FOR GFR; Value: 0.65; Range: 0.55-1.02; Units: MG/DL; Status: F Test: GLOMERULAR FILTRATION RATE; Value: > 60.0; Range: >60; Status: F Test: SODIUM LEVEL; Value: 140; Range: 136-145; Units: MEQ/L; Status: F Test: POTASSIUM SERUM; Value: 4.4; Range: 3.5-5.1; Units: MEQ/L; Status: F Test: CHLORIDE LEVEL; Value: 104; Range: 98-107; Units: MEQ/L; Status: F Test: CARBON DIOXIDE LEVEL; Value: 27; Range: 21-32; Units: MEQ/L; Status: F Test: ANION GAP; Value: 9; Range: 8-16; Units: MEQ/L; Status: F Test: CALCIUM LEVEL; Value: 8.6; Range: 8.5-10.1; Units: MG/DL; Status: F Test Note: ; Units are mL/min/1.73 m2 Chronic Kidney Disease Staging per NKF: Stage I & II GFR >=60 Normal to Mildly Decreased Stage III GFR 30-59 Moderately Decreased Stage IV GFR 15-29 Severely Decreased Stage V GFR <15 Very Little GFR Left ESRD GFR <15 on [employer]ERICAL AND OFFICE SUPPORT WORKERS Lab Order: CBC with Diff; SPEC'M 06/26/16 22:02 Test: WHITE BLOOD COUNT; Value: 11.6; Range: 4.0-10.0; Abnormal: Above high normal; Units: K/mm3; Status: F Test: RED BLOOD COUNT; Value: 4.46; Range: 4.00-5.40; Units: M/mm3; Status: F Test: HEMOGLOBIN; Value: 12.9; Range: 12.0-16.0; Units: g/dl; Status: F Test: HEMATOCRIT; Value: 39.4; Range: 36.0-47.0; Units: %; Status: F Test: MEAN CORPUSCULAR VOLUME; Value: 88.3; Range: 80.0-96.0; Units: fl; Status: F Test: MEAN CORPUSCULAR HEMOGLOBIN; Value: 28.8; Range: 27.0-33.0; Units: pg; Status: F Test: MEAN CORPUSCULAR HGB CONC; Value: 32.6; Range: 32.0-36.5; Units: g/dl; Status: F Test: RED CELL DISTRIBUTION WIDTH; Value: 12.6; Range: 11.5-14.5; Units: %; Status: F Test: PLATELET COUNT, AUTOMATED; Value: 277; Range: 150-450; Units: k/mm3; Status: F Test: NEUTROPHILS %; Value: 78.8; Range: 36.0-66.0; Abnormal: Above high normal; Units: %; Status: F Test: LYMPH %; Value: 12.9; Range: 24.0-44.0; Abnormal: Below low normal; Units: %; Status: F Test: MONO %; Value: 5.2; Range: 0.0-5.0; Abnormal: Above high normal; Units: %; Status: F Test: EOS %; Value: 1.4; Range: 0.0-3.0; Units: %; Status: F Test: BASO %; Value: 0.3; Range: 0.0-1.0; Units: %; Status: F Test: LARGE UNSTAINED CELL %; Value: 1.4; Range: 0.0-4.0; Units: %; Status: F Test: NEUTROPHILS #; Value: 9.1; Range: 1.8-7.7; Abnormal: Above high normal; Units: K/mm3; Status: F Test: LYMPH #; Value: 1.5; Range: 1.5-6.5; Units: K/mm3; Status: F Test: MONO #; Value: 0.6; Range: 0.0-0.8; Units: K/mm3; Status: F Test: EOS #; Value: 0.2; Range: 0.0-0.50; Units: K/mm3; Status: F Test: BASO #; Value: 0.0; Range: 0.0-0.2; Units: K/mm3; Status: F Test: LARGE UNSTAINED CELL #; Value: 0.2; Range: 0.0-0.4; Units: K/mm3; Status: F Lab Order: Lipase; SPEC' 06/26/16 22:02 Test: LIPASE; Value: 107; Range: 73-393; Units: U/L; Status: F Lab Order: Liver Profile; SPEC'M 06/26/16 22:02 Test: AST/SGOT; Value: 11; Range: 15-37; Abnormal: Below low normal; Units: U/L; Status: F Test: ALT/SGPT; Value: 20; Range: 12-78; Units: U/L; Status: F Test: ALKALINE PHOSPHATASE; Value: 96; Range: 45-117; Units: U/L; Status: F Test: BILIRUBIN,TOTAL; Value: 0.8; Range: 0.2-1.0; Units: MG/DL; Status: F Test: BILIRUBIN,DIRECT; Value: 0.2; Range: 0.0-0.2; Units: MG/DL; Status: F Test: TOTAL PROTEIN; Value: 7.4; Range: 6.4-8.2; Units: GM/DL; Status: F Test: ALBUMIN; Value: 3.4; Range: 3.2-5.2; Units: GM/DL; Status: F Test: ALBUMIN/GLOBULIN RATIO; Value: 0.85; Range: 1.00-1.93; Abnormal: Below low normal; Status: F Lab Order: Urinalysis; SPEC'M 06/26/16 21:17 Test: APPEARANCE, URINE; Value: CLOUDY; Range: CLEAR; Abnormal: Above high normal; Status: F Test: COLOR, URINE; Value: YELLOW; Range: YELLOW; Status: F Test: PH,URINE; Value: 5.0; Range: 5.0-9.0; Units: UNITS; Status: F Test: SPECIFIC GRAVITY URINE AUTO; Value: 1.013; Range: 1.002-1.035; Status: F Test: PROTEIN, URINE AUTO; Value: 2+; Range: NEGATIVE; Abnormal: Above high normal; Units: mg/dL; Status: F Test: GLUCOSE, URINE (UA) AUTO; Value: NEGATIVE; Range: NEGATIVE; Units: mg/dL; Status: F Test: KETONE, URINE AUTO; Value: NEGATIVE; Range: NEGATIVE; Units: mg/dL; Status: F Test: UROBILINOGEN, URINE AUTO; Value: 0.2; Range: 0.0-2.0; Units: mg/dL; Status: F Test: BILIRUBIN, URINE AUTO; Value: NEGATIVE; Range: NEGATIVE; Status: F Test: NITRITE, URINE AUTO; Value: POSITIVE; Range: NEGATIVE; Status: F Test: LEUKOCYTE ESTERASE, URINE AUTO; Value: 3+; Range: NEGATIVE; Abnormal: Above high normal; Status: F Test: BLOOD, URINE BLOOD; Value: 2+; Range: NEGATIVE; Abnormal: Above high normal; Status: F Test: WBC, URINE AUTO; Value: TNTC; Range: 0-3; Abnormal: Above high normal; Units: /HPF; Status: F Test: RBC, URINE AUTO; Value: 29; Range: 0-3; Abnormal: Above high normal; Units: /HPF; Status: F Test: BACTERIA, URINE AUTO; Value: 2+; Range: NEGATIVE; Abnormal: Above high normal; Status: F Test: SQUAMOUS EPITHELIAL CELL UR AU; Value: 1; Range: 0-6; Units: /HPF; Status: F Test: MUCUS, URINE; Value: SMALL; Range: NEGATIVE; Status: F Test: HYALINE CAST, URINE AUTO; Value: 0; Range: 0-1; Units: /LPF; Status: F Radiology Order: CT ABD & PELVIS: No Contrast Test: CT ABD & PELVIS: No Contrast REASON FOR EXAMINATION: Renal colic; ; CLINICAL HISTORY: Renal colic.; TECHNIQUE: Multiple axial, sagittal and coronal CT images were obtained through the abdomen and pelvi; s without administration of oral or IV contrast material.; COMMENTS:; The liver is of uniform attenuation without mass or defect. There is no intra or extrahepatic biliary; ductal dilatation. The spleen is enlarged, 16 CM. Gallbladder is packed with calcified stones. The; pancreas is of normal contour and attenuation characteristics. There is no evidence of adrenal mass.; The kidneys are normal in size, shape and configuration. No renal or ureteral calculi are identified.; There is no hydroureter or hydronephrosis.; There is no evidence for appendicitis. There is no bowel wall thickening. No evidence for small or la; rge bowel obstruction. There is no evidence of abdominal ascites or lymphadenopathy.; There is no evidence of intrinsic or extrinsic bladder mass. There is no pelvic ascites or lymphadeno; angle.; 4 x 6 cm right ovarian cyst is seen. Uterus and left ovary are unremarkable.; Images of the lung bases show no evidence of pleural or parenchymal mass. There are no pleural effusi; ons.; The bony structures are free of lytic or blastic lesions.; IMPRESSION:; Gallbladder is packed with calcified stones.; Splenomegaly.; No renal or ureteral calculi are identified.; 4 x 6 cm right ovarian cyst. Consider correlation with pelvic ultrasound.; Thank you for your kind referral of this patient.; ; Radiology Order: Gallbladder US Test: Gallbladder US REASON FOR EXAMINATION: Biliary Colic; ; HISTORY: Biliary colic; TECHNIQUE: Right upper quadrant ultrasound.; ; COMPARISON: Same-day CT abdomen.; ; ULTRASOUND RUQ:; Liver: No intrahepatic ductal dilation. Diffusely increased hepatic echotexture consistent with fatty; infiltration.; Gallbladder: Filled with stones, with mild wall thickening at 3 mm, and positive sonographic Marcos's; sign.; Common bile duct: Nondistended at 4.8 mm.; Pancreas: Poorly visualized due to overlying bowel gas. No pancreatic duct dilation.; Right kidney: 11.1 x 6.3 x 5.1 cm. No stones or hydronephrosis.; Peritoneum: No free fluid.; IMPRESSION:; Cholelithiasis. Positive sonographic Marcos's sign can be seen in acute cholecystitis. Correlate clin; ically.; ; Radiology Order: -US Pelvic Non-Ob Complete Test: -US Pelvic Non-Ob Complete REASON FOR EXAMINATION: Adnexal Pain r/o Torsion; ; CLINICAL HISTORY: Adnexa pain; TECHNIQUE: Ultrasound of the pelvis was performed. Transabdominal and endovaginal exams were performe; d.; COMPARISON: Same-day pelvic ultrasound.; ULTRASOUND PELVIS :; ; Uterus: 9.3 x 5.0 x 6.0 cm. Normal without masses.; ; Endometrial stripe: 16 mm thickness.; ; Right ovary: 6.5 x 5.0 x 6.1 cm. There is a simple cyst measuring 6.3 cm. Normal vascular flow.; ; Left ovary: 4.1 x 2.9 x 3.0 cm. No masses. Normal vascular flow.; ; Pelvic fluid: Physiologic.; ; IMPRESSION: Large 6.3 cm right ovarian cyst. Normal ovarian vascular flow bilaterally.; ; Outcome: 06/26 23:13 Decision to Hospitalize by Provider. ef1 06/27 02:51 Discharge Assessment: patient administered narcotics - yes. Patient was admitted to the [address] or transferred to another facility. The following High Risk Discharge criteria are identified: None. Admitted to Med/Surg accompanied by tech, via stretcher, with chart. Condition: good Condition: stable Condition: improved. Ultrasound Study completed. Property :Personal belongings accompany Pt. 03:21 Patient left the ED. sls1 Signatures: Dispatcher [employer] [facility], Susanne, Reg Reg gb Dalila, Carlyn, PA-C PA-C ef1 Maia Monique br3 Kat Fermin, RN RN sls1 Nitin Hansen [place] cmb Jean Pierre, Anthony Basilio RN RN jcb Prabha ThorpeRN RN renaed Mireille Deal,OPTIMIZATION CONSULTANT OPTIMIZATION CONSULTANT ka4 Tati King RN RN kas2 Memo, Whitney, INSTRUCTIONAL SYSTEMS DESIGN CONSULTANT INSTRUCTIONAL SYSTEMS DESIGN CONSULTANT cln Chart Complete MTDD
== END 2016-06-28 12:48 | disposition home or self-care (01) ==
LOC: M ED 19:11 → M ED INP 23:19 → INTOOBSV 23:19 → M MSPAV 06-27 03:09 → UNDODISIN 06-28 12:48
PROVIDERS: ADMIT Surgery; ATTEND Surgery
DX: K80.12 Calculus of gallbladder with acute and chronic cholecystitis without obstruction (principal); N39.0 Urinary tract infection, site not specified; K76.0 Fatty (change of) liver, not elsewhere classified; N83.201 Unspecified ovarian cyst, right side; F17.200 Nicotine dependence, unspecified, uncomplicated; Z88.5 Allergy status to narcotic agent

== ENCOUNTER 2016-07-01 23:51 | Emergency (ER) | payer OTHER ==
[~2016-07-01 23:51] MED LIST changes: +NEXP68IM SC; +PERCOCET PO; +SENN1TAB2 PO; +TYLE325T5 PO
[2016-07-02] MEDS ORDERED: PERCOCET 5MG/325MG TAB As Ordered ONE (00:48)
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
--- NOTE | 2016-07-02 07:57 | REP ---
Clinical: Epigastric and abdominal pain. Technique: Upright view of the chest with supine and upright views of the abdomen and pelvis. Findings: Frontal upright view of the chest demonstrates small focus of linear fibroatelectatic change in the right lower lung zone. No free air below the diaphragm to suspect pneumoperitoneum. Supine and upright views of the abdomen and pelvis demonstrate nonspecific bowel gas pattern without obstruction or perforation. No organomegaly. No abnormal calcifications. Skeletal structures normal for age. Impression: Nonspecific bowel gas pattern. Plate-like fibro atelectatic change in the left lower lung zone. Signed by Rahul Soriano MD 07/02/2016 07:49 A
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
== END 2016-07-02 02:02 | disposition home or self-care (01) ==
LOC: M ED 23:51
DX: R10.9 Unspecified abdominal pain (principal); V43.52XA Car driver injured in collision with other type car in traffic accident, initial encounter; Y92.410 Unspecified street and highway as the place of occurrence of the external cause; Y93.89 Activity, other specified; Y99.8 Other external cause status; Z90.49 Acquired absence of other specified parts of digestive tract; Z79.3 Long term (current) use of hormonal contraceptives; Z72.0 Tobacco use; Z88.5 Allergy status to narcotic agent

== ENCOUNTER 2016-07-24 19:26 | Emergency (ER) | payer OTHER ==
[2016-07-24] MEDS ORDERED: PERCOCET 5MG/325MG TAB As Ordered ONE ×2 (20:42→20:48)
[2016-07-24] MEDS ORDERED: ONDANSETRON 4 MG ORAL DISINTEGRATING TAB (S0181) As Ordered ONE (20:43)
[2016-07-24] MEDS ORDERED: METHOCARBAMOL 500 MG TAB As Ordered ONE (20:43)
--- NOTE | 2016-07-24 22:40 | REPUSA ---
HISTORY: Trauma COMPARISON: None TECHNIQUE: Multiple thin-section contiguous helically-acquired axially-displayed computed tomographic images of the cervical spine are obtained from skull base inferiorly through T1, with images filmed at soft tissue and bone window. 2D Sagittal and coronal reformatted images are performed. FINDINGS: There is normal cervical vertebral body height and alignment on this supine, non-weight bearing exam. Vertebral body mineralization is normal. All of the intervertebral disc spaces have normal height and contour. There is no herniated nucleus p ulposus, canal or foraminal stenosis. No paraspinal masses or collections. IMPRESSION: No fracture. Thank you for your kind referral of this patient.
--- NOTE | 2016-07-24 23:06 | EDDOCDS ---
Physician Documentation [facility] Name: Mahsa Frankel Age: 26 yrs Sex: Female : 1990 Arrival Date: 07/24/2016 Time: 19:26 Bed PD Private MD: NO PRIMARY PHYSICIAN, . Disposition: 07/24/16 22:55 Discharged to Home/Self Care. Impression: Strain of muscle, fascia and tendon at neck level. - Condition is Stable. - Discharge Instructions: Soft Tissue Injury of the Neck, Cervical Sprain. - Prescriptions for Ibuprofen 800 mg Oral Tablet - take 1 tablet by ORAL route every 8 hours As needed take with food; 30 tablet. Robaxin 500 mg Oral Tablet - take 2 tablet by ORAL route every 6 hours As needed; 40 tablet. ZOFRAN ODT 4 mg - dissolve 1 tablet by ORAL route 4 times per day As needed do not chew, do not swallow whole; 10 tablet. - Medication Reconciliation, Local Pharmacy Hours, Work Release Form - 3 day form. - Follow up: [facility]; When: Call to arrange an appointment; Reason: Recheck today's complaints, Continuance of care. - Problem is new. - Symptoms are unchanged. Historical: - Allergies: hydrocodone (Anaphylaxis); - Home Meds: 1. nexaplon daily - PMHx: none; - PSHx: D & C; ORIF Right Ankle; Cholecystectomy; - Social history: No barriers to communication noted, The patient speaks fluent Barbadian, Speaks appropriately for age, Smoking status: Patient uses tobacco products, light tobacco smoker. - Family history: Not pertinent. - : The pt / caregiver states he / she is not on anticoagulants. Home medication list is obtained from the patient. - Exposure Risk Screening:: None identified. 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 9 in. (175.26 cm) (R); Pain 9/10; 23:02 BP 136 / 83; Pulse 85; Resp 20; Temp 97.3(T); Pulse Ox 98% on R/A; Pain 6/10; jmv 19:29 Body Mass Index 47.99 (147.42 kg, 175.26 cm) gr2 MDM: 20:38 oxyCODONE-acetaminophen 5 mg-325 mg 1 tabs PO once ordered. mo1 20:38 Methocarbamol 1 grams PO once ordered. mo1 20:38 Ondansetron ODT Oral Disintegrating Tablet 4 mg PO once ordered. mo1 20:39 CT Spine,Cervical W/o Contrast Ordered. EDMS 20:54 [facility] Payment Agreement was scanned into [employer] and attached to record. gjb 20:54 Financial registration complete. gjb Administered Medications: 20:51 Drug: oxyCODONE-acetaminophen 1 tabs [oxycodone-acetaminophen 5 mg-325 mg tablet (1 jf3 tabs)] Route: PO; 23:05 Follow up: Response: Pain is decreased jf3 20:51 Drug: Methocarbamol 1 grams [methocarbamol 500 mg tablet (2 tabs)] Route: PO; jf3 23:05 Follow up: Response: Pain is decreased jf3 20:51 Drug: Ondansetron ODT 4 mg [ondansetron 4 mg disintegrating tablet (1 tabs)] Route: PO; jf3 23:05 Follow up: Response: Nausea is decreased jf3 Signatures: Dispatcher [employer] [facility] Fatemeh Regan,RN RN Tristen Sanderson PA PA mo1 Bar Hartley RN RN jf3 Naty Womack The chart was reviewed and I authenticate all verbal orders and agree with the evaluation and treatment provided.Attachments: 20:54 [facility] Payment Agreement gjb MTDD
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
--- NOTE | 2016-07-27 00:06 | EDDOCDS ---
Physician Documentation [facility] Name: Mahsa Frankel Age: 26 yrs Sex: Female : 1990 Arrival Date: 07/24/2016 Time: 19:26 Bed PD Private MD: NO PRIMARY PHYSICIAN, . Disposition: 07/24/16 22:55 Discharged to Home/Self Care. Impression: Strain of muscle, fascia and tendon at neck level. - Condition is Stable. - Discharge Instructions: Soft Tissue Injury of the Neck, Cervical Sprain. - Prescriptions for Ibuprofen 800 mg Oral Tablet - take 1 tablet by ORAL route every 8 hours As needed take with food; 30 tablet. Robaxin 500 mg Oral Tablet - take 2 tablet by ORAL route every 6 hours As needed; 40 tablet. ZOFRAN ODT 4 mg - dissolve 1 tablet by ORAL route 4 times per day As needed do not chew, do not swallow whole; 10 tablet. - Medication Reconciliation, Local Pharmacy Hours, Work Release Form - 3 day form. - Follow up: [facility]; When: Call to arrange an appointment; Reason: Recheck today's complaints, Continuance of care. - Problem is new. - Symptoms are unchanged. Historical: - Allergies: hydrocodone (Anaphylaxis); - Home Meds: 1. nexaplon daily - PMHx: none; - PSHx: D & C; ORIF Right Ankle; Cholecystectomy; - Social history: No barriers to communication noted, The patient speaks fluent Congolese, Speaks appropriately for age, Smoking status: Patient uses tobacco products, light tobacco smoker. - Family history: Not pertinent. - : The pt / caregiver states he / she is not on anticoagulants. Home medication list is obtained from the patient. - Exposure Risk Screening:: None identified. 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 9 in. (175.26 cm) (R); Pain 9/10; 23:02 BP 136 / 83; Pulse 85; Resp 20; Temp 97.3(T); Pulse Ox 98% on R/A; Pain 6/10; jmv 19:29 Body Mass Index 47.99 (147.42 kg, 175.26 cm) gr2 MDM: 20:38 oxyCODONE-acetaminophen 5 mg-325 mg 1 tabs PO once ordered. mo1 20:38 Methocarbamol 1 grams PO once ordered. mo1 20:38 Ondansetron ODT Oral Disintegrating Tablet 4 mg PO once ordered. mo1 20:39 CT Spine,Cervical W/o Contrast Ordered. EDMS 20:54 [facility] Payment Agreement was scanned into [employer] and attached to record. [facility] 20:54 Financial registration complete. gjb 07/25 12:53 T-Sheet-- Draft Copy was scanned into [employer] and attached to record. gb 12:54 Radiology Report was scanned into [employer] and attached to record. gb Administered Medications: 07/24 20:51 Drug: oxyCODONE-acetaminophen 1 tabs [oxycodone-acetaminophen 5 mg-325 mg tablet (1 jf3 tabs)] Route: PO; 23:05 Follow up: Response: Pain is decreased jf3 20:51 Drug: Methocarbamol 1 grams [methocarbamol 500 mg tablet (2 tabs)] Route: PO; jf3 23:05 Follow up: Response: Pain is decreased jf3 20:51 Drug: Ondansetron ODT 4 mg [ondansetron 4 mg disintegrating tablet (1 tabs)] Route: PO; jf3 23:05 Follow up: Response: Nausea is decreased jf3 Signatures: Dispatcher [employer] EDMT Susanne Reynolds, Alberto Reg gb Fatemeh Regan RN RN Tristen Sanderson PA PA mo1 Bar Hartley RN RN nury3 Naty Womack The chart was reviewed and I authenticate all verbal orders and agree with the evaluation and treatment provided.Attachments: 20:54 [facility] Payment Agreement [facility] 07/25 12:53 T-Sheet-- Draft Copy gb Chart Complete MTDD
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
--- NOTE | 2016-07-27 00:06 | EDDOCDS ---
Physician Documentation [facility] Name: Mahsa Frankel Age: 26 yrs Sex: Female : 1990 Arrival Date: 07/24/2016 Time: 19:26 Bed PD Private MD: NO PRIMARY PHYSICIAN, . Disposition: 07/24/16 22:55 Discharged to Home/Self Care. Impression: Strain of muscle, fascia and tendon at neck level. - Condition is Stable. - Discharge Instructions: Soft Tissue Injury of the Neck, Cervical Sprain. - Prescriptions for Ibuprofen 800 mg Oral Tablet - take 1 tablet by ORAL route every 8 hours As needed take with food; 30 tablet. Robaxin 500 mg Oral Tablet - take 2 tablet by ORAL route every 6 hours As needed; 40 tablet. ZOFRAN ODT 4 mg - dissolve 1 tablet by ORAL route 4 times per day As needed do not chew, do not swallow whole; 10 tablet. - Medication Reconciliation, Local Pharmacy Hours, Work Release Form - 3 day form. - [facility] up: [facility]; When: Call to arrange an appointment; Reason: Recheck today's complaints, Continuance of care. - Problem is new. - Symptoms are unchanged. Historical: - Allergies: hydrocodone (Anaphylaxis); - Home Meds: 1. nexaplon daily - PMHx: none; - PSHx: D & C; ORIF Right Ankle; Cholecystectomy; - Social history: No barriers to communication noted, The patient speaks fluent Swiss, Speaks appropriately for age, Smoking status: Patient uses tobacco products, light tobacco smoker. - Family history: Not pertinent. - : The pt / caregiver states he / she is not on anticoagulants. Home medication list is obtained from the patient. - Exposure Risk Screening:: None identified. 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 9 in. (175.26 cm) (R); Pain 9/10; 23:02 BP 136 / 83; Pulse 85; Resp 20; Temp 97.3(T); Pulse Ox 98% on R/A; Pain 6/10; jmv 19:29 Body Mass Index 47.99 (147.42 kg, 175.26 cm) gr2 MDM: 20:38 oxyCODONE-acetaminophen 5 mg-325 mg 1 tabs PO once ordered. mo1 20:38 Methocarbamol 1 grams PO once ordered. mo1 20:38 Ondansetron ODT Oral Disintegrating Tablet 4 mg PO once ordered. mo1 20:39 CT Spine,Cervical W/o Contrast Ordered. EDMS 20:54 [place] [place] Agreement was scanned into ITM Power and attached to record. [facility] 20:54 Financial registration complete. gjb 07/25 12:53 T-Sheet-- Draft Copy was scanned into ITM [employer] and attached to record. gb 12:54 Radiology Report was scanned into [employer] and attached to record. gb Administered Medications: 07/24 20:51 Drug: oxyCODONE-acetaminophen 1 tabs [oxycodone-acetaminophen 5 mg-325 mg tablet (1 jf3 tabs)] Route: PO; 23:05 Follow up: Response: Pain is decreased jf3 20:51 Drug: Methocarbamol 1 grams [methocarbamol 500 mg tablet (2 tabs)] Route: PO; jf3 23:05 Follow up: Response: Pain is decreased jf3 20:51 Drug: Ondansetron ODT 4 mg [ondansetron 4 mg disintegrating tablet (1 tabs)] Route: PO; jf3 23:05 Follow up: Response: Nausea is decreased jf3 Signatures: Dispatcher [employer] EDMO Susanne Reynolds, Alberto Reg gb Fatemeh Regan RN RN Tristen Sanderson PA PA mo1 Bar Hartley RN RN nury3 Naty Womack The chart was reviewed and I authenticate all verbal orders and agree with the evaluation and treatment provided.Attachments: 20:54 [facility] Payment Agreement [facility] 07/25 12:53 T-Sheet-- Draft Copy gb Chart Complete MTDD
== END 2016-07-24 23:05 | disposition home or self-care (01) ==
LOC: M ED 19:26
DX: S16.1XXA Strain of muscle, fascia and tendon at neck level, initial encounter (principal); V43.52XA Car driver injured in collision with other type car in traffic accident, initial encounter; Y92.410 Unspecified street and highway as the place of occurrence of the external cause; Y93.89 Activity, other specified; Y99.8 Other external cause status; F17.200 Nicotine dependence, unspecified, uncomplicated; Z79.3 Long term (current) use of hormonal contraceptives; Z88.5 Allergy status to narcotic agent

== ENCOUNTER 2016-10-15 12:38 | Emergency (ER) | payer OTHER ==
[~2016-10-15] VITALS: Ht 175.3 cm; Wt 145.1 kg
[~2016-10-15 12:38] MED LIST changes: -COLA100C PO; +COLA100C3 PO; +NEXP1IMP SC; -NEXP68IM SC
[2016-10-15] MEDS ORDERED: NAPROXEN 250 MG TAB PO ONE (13:45)
[2016-10-15] MEDS ORDERED: NAPR500T2 PO (14:28)
[2016-10-15 14:45] VITALS: BP 125/80
--- NOTE | 2016-10-15 15:04 | REP ---
RIGHT ANKLE: Four views of the right ankle are performed and compared to prior study of 12/11/2014. There are old bimalleolar fractures, which appear stable. The ankle mortise is anatomic. Distal tibial spurring is seen anteriorly, and there is lateral talar spurring. There is dorsal navicular spurring. IMPRESSION: Old bimalleolar fractures without acute fracture or dislocation. Signed by Jonathan Fernandez MD 10/15/2016 05:27 P
== END 2016-10-15 14:55 | disposition home or self-care (01) ==
LOC: M ED 13:26
DX: S93.401A Sprain of unspecified ligament of right ankle, initial encounter (principal); X50.1XXA Overexertion from prolonged static or awkward postures, initial encounter; Y92.9 Unspecified place or not applicable; Y93.9 Activity, unspecified; Y99.9 Unspecified external cause status; Z87.81 Personal history of (healed) traumatic fracture; Z88.5 Allergy status to narcotic agent

== ENCOUNTER 2020-06-27 17:31 | Emergency (ER) | payer OTHER ==
[~2020-06-27] VITALS: Ht 175.3 cm; Wt 157.7 kg
[~2020-06-27 17:31] MED LIST changes: -COLA100C3 PO; +COLA100C5 PO; +NAPR-885 PO; +SENN-53 PO; -SENN1TAB2 PO
--- NOTE | 2020-06-27 18:28 | REP ---
INDICATION: fall injury COMPARISON: 2012 TECHNIQUE: AP, lateral, bilateral oblique and sunrise views. FINDINGS: The osseous structures and joint spaces are intact and normal. There is no evidence for acute fracture or dislocation. No joint effusion is appreciated. Surrounding soft tissues are unremarkable. No subcutaneous emphysema or radiodense foreign body. IMPRESSION: No acute fracture or dislocation. <Electronically signed by Rahul Soriano > 06/27/20 [id number]
[2020-06-27] MEDS ORDERED: IBUP-1022 PO (20:39)
[2020-06-27] MEDS ORDERED: IBUPROFEN 600MG TAB PO ONE (20:45)
[2020-06-27 21:15] VITALS: BP 122/73
== END 2020-06-27 21:17 | disposition home or self-care (01) ==
LOC: M ED 17:31
DX: S83.91XA Sprain of unspecified site of right knee, initial encounter (principal); W00.0XXA Fall on same level due to ice and snow, initial encounter; Y92.9 Unspecified place or not applicable; Y93.9 Activity, unspecified; Y99.0 Civilian activity done for income or pay; F17.200 Nicotine dependence, unspecified, uncomplicated; Z88.6 Allergy status to analgesic agent

== ENCOUNTER → 2020-07-26 | Outpatient (CLI) | payer OTHER ==
[~2020-07-26] MED LIST changes: +IBUP-1022 PO
--- NOTE | 2020-07-27 08:52 | REP ---
INDICATION: RT KNEE PAIN. COMPARISON: Comparison knee radiographs 27 June 2020.. TECHNIQUE: Axial, coronal, and sagittal imaging planes utilized. T1, proton density, and T2 weighted images are included with without fat saturation. FINDINGS: There is a zone of mild marrow edema involving the lateral aspect of the distal femur in the lateral femoral condyle region. A subtle osteochondral impaction fracture is suspected on axial images in this location. Underlying contusion. Cortical and medullary bone signal intensity are otherwise normal. There is no visible marrow edema in the patella. Medial and lateral patellar retinacular structures appear intact on axial images. There is a small amount of suprapatellar joint fluid but no Bravo's cyst is seen. Quadriceps and patellar tendons are intact. Anterior and posterior cruciate ligaments have an intact appearance. No medial or lateral meniscal tear is seen. IMPRESSION: Marrow edema signal in the anterolateral aspect of the lateral femoral condyle with a suggestion of osteocartilaginous impaction on axial images. Question direct trauma with bone bruising. No corresponding patellar findings to suggest impaction from lateral dislocation of patella. No evidence of internal derangement seen. <Electronically signed by Lawrence Rivas > 07/27/20 [id number]
== END ==
LOC: M RAD 16:34
PROVIDERS: ATTEND Physician Assistant
DX: M25.561 Pain in right knee (principal)

== ENCOUNTER → 2020-10-23 | Outpatient (REF) | payer OTHER ==
[2020-10-23 15:37] LABS: HEMATOCRIT 40.2 % (36.0-47.0); MEAN CORPUSCULAR HEMOGLOBIN 29.7 pg (27.0-33.0); MEAN CORPUSCULAR HGB CONC 32.3 g/dl (32.0-36.5); PLATELET COUNT, AUTOMATED 296 10^3/uL (150-450); RED BLOOD COUNT 4.37 10^6/uL (4.00-5.40)
[2020-10-23 17:02] LABS: ALBUMIN 3.3 GM/DL (3.2-5.2); ALT/SGPT 24 U/L (12-78); BILIRUBIN,TOTAL 0.6 MG/DL (0.2-1.0); BLOOD UREA NITROGEN 11 MG/DL (7-18); CALCIUM LEVEL 8.9 MG/DL (8.5-10.1); CARBON DIOXIDE LEVEL 28 MEQ/L (21-32); CHLORIDE LEVEL 106 MEQ/L (98-107); CHOLESTEROL LEVEL 198 MG/DL (<200); CHOLESTEROL RISK RATIO 5.076 (<5); CREATININE FOR GFR 0.54 MG/DL (0.55-1.30); FREE T4 1.11 NG/DL (0.76-1.46); GLOMERULAR FILTRATION RATE > 60.0 (>60); GLUCOSE, FASTING 92 MG/DL (70-100); HDL CHOLESTEROL 39 MG/DL (>40); LDL CHOLESTEROL 136 MG/DL (<100); NON-HDL-C 159 MG/DL; POTASSIUM SERUM 4.4 MEQ/L (3.5-5.1); SODIUM LEVEL 139 MEQ/L (136-145); TOTAL PROTEIN 6.8 GM/DL (6.4-8.2); TRIGLYCERIDES LEVEL 117 MG/DL (<150)
[2020-10-23 17:05] LABS: TOTAL 25(OH) VITAMIN D 20.2 NG/ML (30.0-100.0)
[2020-10-23 19:09] LABS: HEMOGLOBIN A1c 4.9 %
== END ==
LOC: M SFHCPLAZ 12:18
PROVIDERS: ATTEND Physician Assistant
DX: D50.9 Iron deficiency anemia, unspecified (principal); Z00.00 Encounter for general adult medical examination without abnormal findings; E66.01 Morbid (severe) obesity due to excess calories; Z13.220 Encounter for screening for lipoid disorders; R53.83 Other fatigue

== ENCOUNTER 2021-02-04 14:40 | Emergency (ER) | payer OTHER ==
[~2021-02-04] VITALS: Ht 175.3 cm; Wt 162.8 kg
[2021-02-04 16:17] LABS: BASO # 0.1 10^3/uL (0.0-0.2); BASO % 0.5 % (0.0-1.0); EOS # 0.3 10^3/uL (0.0-0.5); EOS % 2.3 % (0.0-3.0); HEMATOCRIT 41.3 % (36.0-47.0); HEMOGLOBIN 13.3 g/dl (12.0-15.5); LYMPH # 2.3 10^3/uL (1.5-5.0); MEAN CORPUSCULAR HEMOGLOBIN 29.2 pg (27.0-33.0); MEAN CORPUSCULAR HGB CONC 32.2 g/dl (32.0-36.5); MEAN CORPUSCULAR VOLUME 90.6 fl (80.0-96.0); MONO # 0.8 10^3/uL (0.0-0.8); MONO % 6.9 % (2.0-8.0); NEUTROPHILS # 7.6 10^3/uL (1.5-8.5); NEUTROPHILS % 68.6 % (36.0-66.0); PLATELET COUNT, AUTOMATED 267 10^3/uL (150-450); RED BLOOD COUNT 4.56 10^6/uL (4.00-5.40); WHITE BLOOD COUNT 11.1 10^3/uL (4.0-10.0)
[2021-02-04 16:55] LABS: ALBUMIN 3.3 GM/DL (3.2-5.2); ALT/SGPT 22 U/L (12-78); BILIRUBIN,DIRECT < 0.1 MG/DL (0.0-0.2); BILIRUBIN,TOTAL 0.8 MG/DL (0.2-1.0); BLOOD UREA NITROGEN 10 MG/DL (7-18); CALCIUM LEVEL 8.2 MG/DL (8.5-10.1); CARBON DIOXIDE LEVEL 25 MEQ/L (21-32); CHLORIDE LEVEL 110 MEQ/L (98-107); CREATININE FOR GFR 0.53 MG/DL (0.55-1.30); GLOMERULAR FILTRATION RATE > 60.0 (>60); GLUCOSE, FASTING 77 MG/DL (70-100); LIPASE 64 U/L (73-393); POTASSIUM SERUM 4.7 MEQ/L (3.5-5.1); SODIUM LEVEL 140 MEQ/L (136-145); TOTAL PROTEIN 7.1 GM/DL (6.4-8.2)
--- NOTE | 2021-02-04 17:00 | REP ---
INDICATION: R pelvic pain x 14 days, worsening, hx of cysts. COMPARISON: None. TECHNIQUE: Pelvic ultrasound FINDINGS: The uterus measures 9.9 x 5.2 x 5.8 cm. The echo pattern is normal. The endometrium measures 8 mm. The right ovary measures 3.6 x 1.9 x 2.1 cm. The echo pattern and blood flow are normal. The left ovary measures 3.6 x 1.6 x 2.2 cm. The echo pattern and blood flow are normal. Minimal fluid in the cul-de-sac. IMPRESSION: Normal pelvic ultrasound <Electronically signed by Baldo Waggoner > 02/04/21 [id number]
[2021-02-04] MEDS ORDERED: ISOVUE-370 76% 100ML VIAL As Ordered ONE (17:37)
[2021-02-04 18:46] VITALS: BP 151/72
--- NOTE | 2021-02-04 19:12 | REPVR ---
PROCEDURE INFORMATION: Exam: CT Abdomen And Pelvis With Contrast Exam date and time: 02/04/2021 5:43 PM Age: 30 years old Clinical indication: Abdominal pain; Localized; Right lower quadrant (rlq); Additional info: Rlq pain TECHNIQUE: Imaging protocol: Computed tomography of the abdomen and pelvis with contrast. Radiation optimization: All CT scans at this facility use at least one of these dose optimization techniques: automated exposure control; mA and/or kV adjustment per patient size (includes targeted exams where dose is matched to clinical indication); or iterative reconstruction. Contrast material: ISOVUE 370; Contrast volume: 100 ml; Contrast route: INTRAVENOUS (IV); COMPARISON: CT ABD PELVIS W/O CONTRAST 06/26/2016 10:11 PM FINDINGS: Lungs: No suspicious mass or airspace process in the visualized lung bases. Liver: Liver appears normal with no focal abnormality. Gallbladder and bile ducts: Gallbladder is surgically absent. Pancreas: Pancreas appears normal. No focal mass or peripancreatic inflammation. Spleen: Spleen appears homogeneous without focal mass. Adrenal glands: Adrenal glands are normal in appearance. Kidneys and ureters: Kidneys appear normal, with no stone, solid mass or hydronephrosis. Stomach and bowel: Terminal ileum has normal appearance. No evidence of acute diverticulitis. Appendix: Normal caliber appendix is identified, with no adjacent inflammation. Intraperitoneal space: Trace free fluid is present in the pelvis. Vasculature: No aortic aneurysm. Main portal and splenic veins enhance normally. Lymph nodes: No enlarged lymph nodes. Urinary bladder: Urinary bladder appears normal. Reproductive: Uterus appears myomatous. Bones/joints: Bony structures show no acute fracture or destructive process. Soft tissues: Fat containing umbilical hernia is present. No concerning focal abnormality of the extra-abdominal and pelvic soft tissues. IMPRESSION: 1. No evidence of acute appendicitis or right-sided urinary tract abnormality. 2. Probable myomatous uterus Electronically signed by: Markus Carr On 02/04/2021 19:11:58 PM
--- NOTE | 2021-02-05 12:45 | ED PDOC ---
Post-Departure Follow-Up ct abd/p faxed to [facility] Louis Johnson MD Feb 05, 2021 12:45
== END 2021-02-04 19:54 | disposition home or self-care (01) ==
LOC: M ED 14:40
DX: R10.31 Right lower quadrant pain (principal); F17.210 Nicotine dependence, cigarettes, uncomplicated; Z88.6 Allergy status to analgesic agent
CPT/HCPCS: 36415; 74177; 76856; 80048; 80076; 83690; 85025; 99284; Q9967

== ENCOUNTER 2021-11-08 12:21 | Emergency (ER) | payer OTHER ==
[2021-11-08 12:21] VITALS: BP 158/74
[2021-11-08] MEDS ORDERED: CLOM50TA9 (12:31)
[2021-11-08 13:08] LABS: BASO % 0.3 % (0.0-1.0); EOS # 0.2 10^3/uL (0.0-0.5); EOS % 1.2 % (0.0-3.0); HEMATOCRIT 40.8 % (36.0-47.0); HEMOGLOBIN 13.1 g/dl (12.0-15.5); LYMPH # 2.2 10^3/uL (1.5-5.0); LYMPH % 16.1 % (24.0-44.0); MEAN CORPUSCULAR HEMOGLOBIN 29.4 pg (27.0-33.0); MEAN CORPUSCULAR HGB CONC 32.1 g/dl (32.0-36.5); MEAN CORPUSCULAR VOLUME 91.5 fl (80.0-96.0); MONO # 0.7 10^3/uL (0.0-0.8); MONO % 5.3 % (2.0-8.0); NEUTROPHILS # 10.5 10^3/uL (1.5-8.5); NEUTROPHILS % 76.8 % (36.0-66.0); PLATELET COUNT, AUTOMATED 276 10^3/uL (150-450); RED BLOOD COUNT 4.46 10^6/uL (4.00-5.40); WHITE BLOOD COUNT 13.7 10^3/uL (4.0-10.0)
[2021-11-08 13:31] LABS: ALBUMIN 3.3 GM/DL (3.2-5.2); ALT/SGPT 21 U/L (12-78); BILIRUBIN,DIRECT 0.2 MG/DL (0.0-0.2); BILIRUBIN,TOTAL 0.7 MG/DL (0.2-1.0); BLOOD UREA NITROGEN 14 MG/DL (7-18); CALCIUM LEVEL 9.4 MG/DL (8.5-10.1); CARBON DIOXIDE LEVEL 25 MEQ/L (21-32); CHLORIDE LEVEL 109 MEQ/L (98-107); GLOMERULAR FILTRATION RATE > 60.0 (>60); GLUCOSE, FASTING 99 MG/DL (70-100); LIPASE 81 U/L (73-393); POTASSIUM SERUM 4.3 MEQ/L (3.5-5.1); SODIUM LEVEL 142 MEQ/L (136-145)
[2021-11-08 13:35] LABS: HCG, SERUM QUALITATIVE NEGATIVE (NEGATIVE)
== END 2021-11-08 16:29 | disposition left against medical advice (07) ==
LOC: M ED 12:21
DX: Z53.21 Procedure and treatment not carried out due to patient leaving prior to being seen by health care provider (principal)